=== PATIENT | male | born 1935 | race African-American/Black ===

== ENCOUNTER 2017-06-17 15:30 | Inpatient (IN) | payer OTHER, MEDICARE, BC ==
[~2017-06-17] VITALS: Ht 177.8 cm; Wt 119.1 kg
[2017-06-17] VITALS (9 sets, daily range): BP systolic 184–196; BP diastolic 77–90; PULSE 62–84; RESP 16–26; TEMP 98.3; O2SAT 93–97
[~2017-06-17 15:30] MED LIST: ALLO300T2 PO; ASPI1TAB69 PO; CARV25TA PO; EZET10 PO; FERR325T PO; FURO80TA PO; INSU1.2I SQ
[2017-06-17] MEDS ORDERED: SODI650T PO (16:15)
[2017-06-17] MEDS ORDERED: EZET10 PO (16:15)
[2017-06-17] MEDS ORDERED: FERR325T18 PO (16:15)
--- NOTE | 2017-06-17 16:23 | PD ---
HPI Chief Complaint: Abnormal Results Time Seen by Provider: 16:11 Travel History International Travel<30 days: No Contact w/Intl Traveler<30days: No Traveled to known affect area: No History of Present Illness HPI 81-year-old male was referred to the emergency room for evaluation of hyperkalemia. Patient has history of chronic kidney disease and recurrent hyperkalemia. Patient was admitted for hyperkalemia about a month ago in [place]. Patient has not had potassium level checked since then. Patient recently had a fistula procedure done on the left arm. Patient states that the fistula has not been used. Patient is awaiting dialysis. Patient was seen [facility] today and potassium was 6.4. Patient was referred to ED for evaluation. Patient denies any headache. Patient denies any chest pain or shortness of breath. Patient denies abdominal pain. Patient denies any focal weakness or numbness of extremity. Patient has history hypertension and diabetes. PFSH Past Medical History Arthritis: Yes (BL KNEES) Asthma: Yes (CHILDHOOD) Cancer: No Cardiovascular Problems: Yes (HTN) High Cholesterol: Yes Diabetes: Yes Patient Takes Glucophage: No Diminished Hearing: No Deep Vein Thrombosis: Yes (LEFT LOWER LEG 02/2013) Gastrointestinal Disorders: No Gout: Yes Hypertension: Yes Immune Disorder: No Implanted Vascular Access Dvce: No Neurologic: No Psychiatric: No Reproductive: No Immunizations Current: Yes Sleep Apnea: Yes Thyroid Disease: No Past Surgical History Eye Surgery: Yes (BL CATARACT REMOVAL) Neurologic Surgery: Yes (L5 HERNIATED DISC) Pacemaker: No Other Surgery: Yes (left arm fistula ) Social History Alcohol Use: Yes (rarely) Tobacco Use: No (FORMER) Substance Use: No Allergies-Medications (Allergen,Severity, Reaction): Coded Allergies: No Known Allergies (Unverified Adverse Reaction, Unknown, 06/17/17) Reported Meds & Prescriptions Reported Meds & Active Scripts Active Reported Zetia (Ezetimibe) 10 Mg Tab 10 Mg PO DAILY Ferrous Sulfate 325 Mg (65 Mg Iron) Tablet 325 Mg PO DAILY Sodium Bicarbonate 650 Mg Tab 650 Mg PO BIDPC Furosemide 80 Mg Tab 80 Mg PO DAILY Carvedilol 25 Mg Tab 25 Mg PO BID Allopurinol 300 Mg Tab 150 Mg PO DAILY Review of Systems General / Constitutional: No: Fever Eyes: No: Visual changes HENT: No: Headaches Cardiovascular: No: Chest Pain or Discomfort Respiratory: No: Shortness of Breath Gastrointestinal: No: Abdominal Pain Genitourinary: No: Dysuria Musculoskeletal: No: Pain Skin: No Rash Neurologic: No: Weakness Psychiatric: No: Depression Endocrine: No: Polydipsia Hematologic/Lymphatic: No: Easy Bruising Physical Exam Narrative GENERAL: Well-nourished, well-developed patient. SKIN: Focused skin assessment warm/dry. HEAD: Normocephalic. EYES: No scleral icterus. No injection or drainage. NECK: Supple, trachea midline. No JVD or lymphadenopathy. CARDIOVASCULAR: Regular rate and rhythm without murmurs, gallops, or rubs. RESPIRATORY: Breath sounds equal bilaterally. No accessory muscle use. GASTROINTESTINAL: Abdomen soft, non-tender, nondistended. MUSCULOSKELETAL: No cyanosis, or edema. BACK: Nontender without obvious deformity. No CVA tenderness. Neurologic exam normal. Data Data Last Documented VS Vital Signs Date Time Temp Pulse Resp B/P (MAP) Pulse Ox O2 Delivery O2 Flow Rate FiO2 06/17/17 16:52 95 06/17/17 16:08 64 16 Room Air 06/17/17 15:35 98.3 190/87 (121) Orders Orders Electrocardiogram (06/17/17 16:17) Complete Blood Count With Diff (06/17/17 16:17) Comprehensive Metabolic Panel (06/17/17 16:17) Prothrombin Time / Inr (Pt) (06/17/17 16:17) Act Partial Throm Time (Ptt) (06/17/17 16:17) Magnesium (Mg) (06/17/17 16:17) Phosphorus (Po4) (06/17/17 16:17) Iv Access Insert/Monitor (06/17/17 16:17) Ecg Monitoring (06/17/17 16:17) Oximetry (06/17/17 16:17) Calcium Gluconate Inj (Calcium Gluconate (06/17/17 16:30) Dextrose 50% In Keri (Vial) Inj (D50w (Vi (06/17/17 16:30) Insulin Human Regular Inj (Novolin R Inj (06/17/17 16:30) Sodium Bicarbonate 8.4% Inj (Sodium Bica (06/17/17 16:30) Sodium Polysty Sulfate Liq (Kayexalate L (06/17/17 16:30) Labs Laboratory Tests Test 06/17/17 16:47 White Blood Count 7.1 TH/MM3 Red Blood Count 3.36 MIL/MM3 Hemoglobin 9.9 GM/DL Hematocrit 31.3 % Mean Corpuscular Volume 93.0 FL Mean Corpuscular Hemoglobin 29.4 PG Mean Corpuscular Hemoglobin Concent 31.6 % Red Cell Distribution Width 14.3 % Platelet Count 214 TH/MM3 Mean Platelet Volume 8.0 FL Neutrophils (%) (Auto) 31.9 % Lymphocytes (%) (Auto) 52.2 % Monocytes (%) (Auto) 5.8 % Eosinophils (%) (Auto) 9.2 % Basophils (%) (Auto) 0.9 % Neutrophils # (Auto) 2.3 TH/MM3 Lymphocytes # (Auto) 3.6 TH/MM3 Monocytes # (Auto) 0.4 TH/MM3 Eosinophils # (Auto) 0.7 TH/MM3 Basophils # (Auto) 0.1 TH/MM3 CBC Comment DIFF FINAL Differential Comment Prothrombin Time 10.7 SEC Prothromb Time International Ratio 1.1 RATIO Activated Partial Thromboplast Time 26.7 SEC Blood Urea Nitrogen 61 MG/DL Creatinine 5.70 MG/DL Random Glucose 210 MG/DL Total Protein 7.1 GM/DL Albumin 3.0 GM/DL Calcium Level 8.3 MG/DL Phosphorus Level 3.6 MG/DL Magnesium Level 2.7 MG/DL Alkaline Phosphatase 121 U/L Aspartate Amino Transf (AST/SGOT) 13 U/L Alanine Aminotransferase (ALT/SGPT) 15 U/L Total Bilirubin 0.2 MG/DL Sodium Level 143 MEQ/L Potassium Level 6.6 MEQ/L Chloride Level 116 MEQ/L Carbon Dioxide Level 18.4 MEQ/L Anion Gap 9 MEQ/L Estimat Glomerular Filtration Rate 12 ML/MIN [facility] Medical Decision Making Medical Screen Exam Complete: Yes Emergency Medical Condition: Yes Interpretation(s) 1743 PM. Potassium 6.6. Chloride 116. Bicarbonate 18.4. BUN 61. Creatinine 5.7. GFR 12. Glucose 210. Calcium 8.3. Magnesium 2.7. Differential Diagnosis Differential diagnosis including hyperkalemia. Narrative Course 81-year-old male was referred to the emergency room from [facility] for hyperkalemia. Potassium was 6.4 today. Normal saline solution 70 cc an hour. Potassium level will be rechecked immediately. Patient is given D50, insulin, bicarbonate, calcium gluconate. Kayexalate also given. Patient will be admitted. I spoke with distresser on-call, Dr. Little. Advised repeat potassium level tonight at 10 PM. The results of potassium level will be called to Dr. Little. Diagnosis Primary Impression: Hyperkalemia Additional Impression: Chronic kidney disease, stage IV (severe) Admitting Information Admitting Physician Requests: Admit Raman Hernandez MD Jun 17, 2017 16:23
[2017-06-17] MEDS ORDERED: CALCIUM GLUCONATE INJ 1 GM in DEXTROSE 5% IN WATER 100ML INJ 100 ML IV ONE ×2 (16:30)
[2017-06-17] MEDS ORDERED: SODIUM POLYSTYRENE SULFONATE SUSP 15 GM/60 ML CUP PO ONE (16:30)
[2017-06-17] MEDS ORDERED: DEXTROSE 50% IN WATER 50 ML VIAL(D50) IV PUSH ONE (16:30)
[2017-06-17] MEDS ORDERED: INSULIN HUMAN REGULAR 1,000 UNITS/10 ML VIAL IV PUSH ONE (16:30)
[2017-06-17] MEDS ORDERED: SODIUM BICARBONATE 8.4% INJ 50 MEQ/50 ML SYR IV PUSH ONE (16:30)
[2017-06-17 16:56] LABS: AUTOMATED NEUTROPHIL # 2.3 TH/MM3 (1.8-7.7); BASOPHIL # 0.1 TH/MM3 (0-0.2); BASOPHIL % 0.9 % (0.0-2.0); EOSINOPHIL # 0.7 TH/MM3 (0-0.4); EOSINOPHIL % 9.2 % (0.0-4.0); HEMATOCRIT 31.3 % (39.0-51.0); HEMO FLAGS DIFF FINAL; LYMPH % 52.2 % (9.0-44.0); LYMPHOCYTE # 3.6 TH/MM3 (1.0-4.8); MEAN CORPUSCULAR HEMOGLOBIN 29.4 PG (27.0-34.0); MEAN CORPUSCULAR HGB CONC 31.6 % (32.0-36.0); MONO % 5.8 % (0.0-8.0); NEUT % 31.9 % (16.0-70.0); PLATELET COUNT 214 TH/MM3 (150-450); RED BLOOD COUNT 3.36 MIL/MM3 (4.50-5.90); RED CELL DISTRIBUTION WIDTH 14.3 % (11.6-17.2); WHITE BLOOD COUNT 7.1 TH/MM3 (4.0-11.0)
[2017-06-17 17:08] LABS: APTT (PATIENT) 26.7 SEC (24.3-30.1); INTERNATIONAL NORMALIZED RATIO 1.1 RATIO; PROTHROMBIN TIME - PATIENT 10.7 SEC (9.8-11.6)
[2017-06-17 17:33] LABS: ALKALINE PHOSPHATASE 121 U/L (45-117); ALT (GPT) 15 U/L (12-78); ANION GAP 9 MEQ/L (5-15); AST (GOT) 13 U/L (15-37); BICARBONATE 18.4 MEQ/L (21.0-32.0); BLOOD UREA NITROGEN 61 MG/DL (7-18); CHLORIDE 116 MEQ/L (98-107); GLOMERULAR FILTRATION RATE 12 ML/MIN (>89); MAGNESIUM 2.7 MG/DL (1.5-2.5); SODIUM (NA) 143 MEQ/L (136-145); TOTAL BILIRUBIN ADULT 0.2 MG/DL (0.2-1.0)
[2017-06-17 17:39] LABS: POTASSIUM 6.6 MEQ/L (3.5-5.1)
[2017-06-17] MEDS ORDERED: SODIUM CHLORIDE 0.9% FLUSH 10 ML FLUSH IV FLUSH PRN (18:30)
[2017-06-17] MEDS ORDERED: NALOXONE HCL 0.4 MG/ML AMP IV PUSH PRN (18:30)
[2017-06-17] MEDS ORDERED: ACETAMINOPHEN 325 MG TAB PO PRN (18:30)
[2017-06-17] MEDS: SODIUM CHLOR 0.9% 1000 ML INJ 1,000 ML IV SCH (18:40)
--- NOTE | 2017-06-17 19:31 | HHI.DS ---
Discharge Summary Admission Date Jun 17, 2017 at 18:26 Admitting Diagnosis hyperkalemia. Chronic kidney disease. CBC/BMP: 06/17/17 1647 06/17/17 1647 Significant Findings Laboratory Tests Test 06/17/17 16:47 Red Blood Count 3.36 MIL/MM3 (4.50-5.90) Hemoglobin 9.9 GM/DL (13.0-17.0) Hematocrit 31.3 % (39.0-51.0) Mean Corpuscular Hemoglobin Concent 31.6 % (32.0-36.0) Lymphocytes (%) (Auto) 52.2 % (9.0-44.0) Eosinophils (%) (Auto) 9.2 % (0.0-4.0) Eosinophils # (Auto) 0.7 TH/MM3 (0-0.4) Blood Urea Nitrogen 61 MG/DL (7-18) Creatinine 5.70 MG/DL (0.60-1.30) Random Glucose 210 MG/DL (74-106) Albumin 3.0 GM/DL (3.4-5.0) Calcium Level 8.3 MG/DL (8.5-10.1) Magnesium Level 2.7 MG/DL (1.5-2.5) Alkaline Phosphatase 121 U/L (45-117) Aspartate Amino Transf (AST/SGOT) 13 U/L (15-37) Potassium Level 6.6 MEQ/L (3.5-5.1) Chloride Level 116 MEQ/L (98-107) Carbon Dioxide Level 18.4 MEQ/L (21.0-32.0) Estimat Glomerular Filtration Rate 12 ML/MIN (>89) Ashley Huynh MD Jun 17, 2017 19:31
[2017-06-17] MEDS: SODIUM CHLORIDE 0.9% FLUSH 10 ML FLUSH IV FLUSH SCH (19:59)
[2017-06-17] MEDS: CARVEDILOL 12.5 MG TAB PO SCH (19:59)
[2017-06-17] MEDS ORDERED: DEXTROSE 50% IN WATER 50 ML VIAL(D50) IV PUSH PRN (21:00)
[2017-06-17] MEDS ORDERED: GLUCAGON 1 MG/ML VIAL OTHER PRN (21:00)
[2017-06-17] MEDS: hydrALAZINE HCL 20 MG/ML VIAL IV PUSH PRN (21:06)
--- NOTE | 2017-06-17 21:31 | EKG ---
Date Performed: 06/17/2017 Time Performed: 16:24:40 PTAGE: 81 years EKG: Sinus rhythm WITH FIRST DEGREE AV BLOCK INFERIOR MYOCARDIAL INFARCTION T-WAVE ABNORMALITY, CONSIDER LATERAL ISCHE MELISA NONSPECIFIC INTRAVENTRICULAR CONDUCTION DELAY ABNORMAL ECG PREVIOUS TRACING : 07/13/2013 03.44 Compared to previous tracing, lateral T wave inversion is n ow more pronounced. DOCTOR: Perfecto Miramontes Interpretating Date/Time 06/17/2017 21:30:48
[2017-06-17] MEDS ORDERED: CHLORHEXIDINE GLUCONATE 2 % 1 PACK (2 CLOTHS)(extra cloths) TOPICAL PRN (23:30)
[2017-06-18] VITALS (25 sets, daily range): BP systolic 146–201; BP diastolic 65–125; PULSE 74–107; RESP 18–30; TEMP 98.3–99.5; O2SAT 95–99
[2017-06-18] MEDS ORDERED: INSU1.2I SQ (00:26)
[2017-06-18] MEDS: hydrALAZINE HCL 20 MG/ML VIAL IV PUSH PRN ×3 (00:52→16:58)
[2017-06-18] MEDS: CHLORHEXIDINE GLUCONATE 2 % 1 PACK (2 CLOTHS)(taper/protocol) TOPICAL SCH (00:52)
[2017-06-18] MEDS ORDERED: cloNIDine HCL 0.1 MG TAB PO ONE ×2 (02:15→04:30)
[2017-06-18 06:20] LABS: AUTOMATED NEUTROPHIL # 3.1 TH/MM3 (1.8-7.7); BASOPHIL % 0.5 % (0.0-2.0); EOSINOPHIL # 0.7 TH/MM3 (0-0.4); EOSINOPHIL % 8.2 % (0.0-4.0); HEMATOCRIT 32.7 % (39.0-51.0); HEMO FLAGS DIFF FINAL; LYMPH % 49.5 % (9.0-44.0); LYMPHOCYTE # 4.5 TH/MM3 (1.0-4.8); MEAN CELL VOLUME 90.4 FL (80.0-100.0); MEAN CORPUSCULAR HEMOGLOBIN 29.2 PG (27.0-34.0); MEAN CORPUSCULAR HGB CONC 32.3 % (32.0-36.0); MONO % 6.1 % (0.0-8.0); NEUT % 35.7 % (16.0-70.0); PLATELET COUNT 232 TH/MM3 (150-450); RED BLOOD COUNT 3.62 MIL/MM3 (4.50-5.90); RED CELL DISTRIBUTION WIDTH 12.9 % (11.6-17.2); WHITE BLOOD COUNT 8.8 TH/MM3 (4.0-11.0)
[2017-06-18 06:29] LABS: POTASSIUM 5.3 MEQ/L (3.5-5.1)
[2017-06-18 06:40] LABS: BICARBONATE 17.9 MEQ/L (21.0-32.0)
[2017-06-18] MEDS: ONDANSETRON HCL 4 MG/2 ML VIAL IV PUSH PRN ×2 (07:27→20:49)
[2017-06-18] MEDS: SODIUM CHLOR 0.9% 1000 ML INJ 1,000 ML IV SCH (08:30)
[2017-06-18] MEDS: CARVEDILOL 12.5 MG TAB PO SCH ×2 (08:30→21:48)
[2017-06-18] MEDS: FERROUS SULFATE 325 MG (65 MG ELEMENTAL IRON) TAB PO SCH (08:30)
[2017-06-18] MEDS: SODIUM CHLORIDE 0.9% FLUSH 10 ML FLUSH IV FLUSH SCH ×2 (08:30→21:00)
[2017-06-18] MEDS ORDERED: SODIUM BICARBONATE 650 MG TAB PO SCH (09:00)
[2017-06-18] MEDS ORDERED: SODIUM BICARBONATE 325 MG TAB PO SCH (09:00)
[2017-06-18] MEDS ORDERED: DEXTROSE 50% IN WATER 50 ML VIAL(D50) IV PUSH PRN (10:15)
[2017-06-18] MEDS ORDERED: GLUCAGON 1 MG/ML VIAL OTHER PRN (10:15)
--- NOTE | 2017-06-18 10:17 | HHI.PR ---
Subjective Remarks Patient seen and evaluated in follow-up for electrolyte imbalance and end-stage renal disease. Potassium improved Some nausea this morning Objective Vitals Vital Signs Date Time Temp Pulse Resp B/P (MAP) Pulse Ox O2 Delivery O2 Flow Rate FiO2 06/18/17 06:00 96 06/18/17 06:00 96 25 178/76 (110) 96 06/18/17 05:00 92 22 186/90 (122) 98 06/18/17 04:00 90 06/18/17 04:00 98.4 90 22 189/80 (116) 98 06/18/17 03:57 90 24 181/88 (119) 98 06/18/17 03:00 88 24 193/125 (147) 97 06/18/17 02:00 90 06/18/17 02:00 90 25 200/86 (124) 98 06/18/17 01:00 78 22 195/90 (125) 98 06/18/17 00:14 74 23 197/95 (129) 99 06/18/17 00:00 88 06/18/17 00:00 98.4 86 23 201/92 (128) 95 06/17/17 23:00 84 24 193/88 (123) 06/17/17 22:00 82 22 193/88 (123) 06/17/17 21:00 76 26 196/90 (125) 06/17/17 20:00 68 18 184/83 (116) 95 06/17/17 20:00 62 06/17/17 19:45 98.3 69 18 193/80 (117) 96 06/17/17 19:28 66 16 184/80 (114) 97 06/17/17 18:32 65 16 184/77 (112) 97 Room Air 06/17/17 16:52 95 06/17/17 16:08 64 16 95 Room Air 06/17/17 15:35 98.3 78 18 190/87 (121) 93 I/O 06/17/17 06/17/17 06/17/17 06/18/17 06/18/17 06/18/17 07:00 15:00 23:00 07:00 15:00 23:00 Intake Total 110 ml 1199 ml Output Total 1120 ml Balance 110 ml 79 ml Intake Oral 480 ml IV Total 110 ml 719 ml Output Urine Total 1120 ml # Bowel Movements 0 Result Diagram: 06/18/17 0610 06/18/17 0610 Objective Remarks GENERAL: This is a well-nourished, well-developed patient, nausea CARDIOVASCULAR: Regular rate and rhythm without murmurs, gallops, or rubs. RESPIRATORY: Clear to auscultation. Breath sounds equal bilaterally. No wheezes , rales, or rhonchi. GASTROINTESTINAL: Abdomen soft, non-tender, nondistended. Normal active bowel sounds MUSCULOSKELETAL: Extremities without clubbing, cyanosis, or edema. NEURO: Alert & Oriented x4 to person, place, time, situation. Moves all ext x4 A/P Problem List: (1) Chronic kidney disease, stage IV (severe) ICD Code: N18.4 - Chronic kidney disease, stage 4 (severe) Status: Acute Plan: May need hemodialysis, nephrology following (2) Hyperkalemia ICD Code: E87.5 - Hyperkalemia Status: Acute Plan: Patient evaluated, refused Kayexalate (3) Diabetes mellitus ICD Code: E11.9 - Diabetes mellitus Status: Acute Plan: continue sliding scale, home medications (4) Hypertension ICD Code: I10 - Hypertension Status: Acute Plan: Continue blood pressure management, improved with current regimen Ashley Huynh MD Jun 18, 2017 10:17
[2017-06-18] MEDS: INSULIN ASPART SUPPLEMENTAL SCALE SQ SCH ×3 (12:19→21:49)
[2017-06-18] MEDS: NIFEdipine 60 MG SUSTAINED RELEASE TAB PO SCH (14:27)
--- NOTE | 2017-06-18 15:18 | MB ---
cc: BRYON ANTHONY MD DATE OF CONSULTATION: 06/18/2017. REASON FOR CONSULTATION: Elevated BUN and BUN and creatinine and hyperkalemia. HISTORY OF PRESENT ILLNESS: This is an 81-year-old male with past medical history of hypertension, bronchial asthma, history of deep vein thrombosis, sleep apnea, chronic anemia and chronic kidney disease who [facility] I was called to see the patient because of elevated BUN and creatinine. The patient has known history of chronic kidney disease. He lives in [place], [place] and has been following with his label folder there, and he was told that he needs to start on dialysis soon. He has a left arm AV fistula, which was done on May 23. The patient denies any nausea or vomiting. His appetite has been normal. He does not have any shortness of breath. He has some weakness and tiredness and feels like he is sleeping more than what usually used to do. There is no history of diarrhea. No dysuria or hematuria. He did not notice any decrease in the urine output. When the patient came in here, it was found that his potassium was 6.6 and it came down with treatment and now it is 5.3. He denies any history of taking nonsteroidal antiinflammatory drugs. PAST MEDICAL HISTORY: 1. Hypertension. 2. Bronchial asthma. 3. History of deep venous thrombosis. 4. Sleep apnea. 5. Chronic anemia. 6. History of gout. 7. Chronic kidney disease. PAST SURGICAL HISTORY: 1. Left arm AV fistula surgery one on May 23. 2. Herniated disc surgery. 3. Bilateral cataract surgery. REVIEW OF SYSTEMS: There is no history of fever. No headache. He has generalized weakness. He feels tired sometimes and sleeps more than normal. There is no nausea or vomiting. No shortness of breath. No chest pain. His appetite is normal. No hematuria. He did not notice any decrease in the urine output. SOCIAL HISTORY: The lives with his . There is no history of smoking. Occasionally drinks alcoholic beverages. FAMILY HISTORY: Family history is noncontributory. ALLERGIES: HE HAS NO KNOWN DRUG ALLERGIES. MEDICATIONS: Currently he is on the following medications: 1. Sodium bicarbonate 650 milligrams twice a day. 2. Ferrous sulfate 325 milligrams twice a day. 3. He received Kayexalate yesterday afternoon. 4. Insulin Aspart sliding scale. 5. Carvedilol 25 milligrams twice a day. PHYSICAL EXAMINATION: GENERAL: On examination, the patient is awake and alert and in no acute distress. VITAL SIGNS: His last blood pressure was 160/79, temperature is 98.7, oxygen saturation is 96% on room air. HEAD, EYES, EARS, NOSE, THROAT: The pupils are mid constricted. Nonicteric sclerae. Conjunctivae are pale. NECK: The neck is supple. JVD is not elevated. LUNGS: The patient has bilateral good air entry with occasional wheezing. HEART: S1 and S2 regular rhythm. ABDOMEN: Abdomen soft and lax no bruits. There is no tenderness. Bowel sounds positive. EXTREMITIES: There has mild edema in the legs. Left arm has an AV fistula with good bruit. INVESTIGATIONS: White blood cell count is 8.8, hemoglobin 10.6, platelet count of 232,000, neutrophils 35.7%. Sodium 144, potassium 5.3, chloride 106, bicarbonate 17.9, BUN 54, creatinine 5.4, glucose is 239, calcium is 8.3, phosphorus was 3.6 yesterday, magnesium 2.7. AST 13, ALT 15. Total protein 7.1 with albumin of 3.0. No urinalysis done. IMAGING STUDIES: The patient had ultrasound of the kidneys done in 2013 and it shows both kidneys are normal in size and there was no hydronephrosis. He has bilateral renal cysts. ASSESSMENT: 1. Chronic kidney disease with advanced renal failure. 2. Hyperkalemia and metabolic acidosis. 3. Hypertension. 4. Diabetes mellitus. 5. Mild anemia. 6. History of sleep apnea. The patient has advanced renal failure with a very high BUN and creatinine and his GFR is around 12. Although he does not have too many symptoms of uremia, it seems like he is reaching end-stage and will need to start dialysis soon. If his potassium is better, then he probably can wait until the fistula matures. The fistula was done almost four weeks ago and still needs more than a month just to mature. The patient want to delay the Dialysis as he want to wait for AVF maturation and going on a cruise on July 24 for six days. I discussed with him and his in detail about the symptoms of uremia. I asked him to go to the emergency room if he has any of these symptoms. In the meantime, will monitor his potassium. If his potassium is normal or close to normal, then he possibly can be discharged tomorrow and monitor him as an outpatient. The BP is elevated, I will put him on nifedipine and he should restrict potassium in the diet. This was discussed with the patient and the . If his potassium increases again, then I will give him Kayexalate. I will also increase the sodium bicarbonate to two twice a day. Thank you for the consultation. I will follow the patient while he is in the hospital. MD PENNIE Raman/ANGUS /1:39 PM /2:51 PM [id number]
--- NOTE | 2017-06-18 15:31 | HHI.HP ---
[facility] Physician Non-Staff Admission Diagnosis hyperkalemia. Chronic kidney disease. Diagnoses: (1) Chronic kidney disease, stage IV (severe) (2) Hyperkalemia (3) Diabetes mellitus Chief Complaint: Hyperkalemia Travel History International Travel<30 Days: No Contact w/Intl Traveler <30 Da: No Traveled to Known Affected Are: No History of Present Illness Patient is 81-year-old gentleman who follows up at the [place] services. He had outpatient labs drawn and the potassium was 6.4. Patient was referred to the emergency room. He reports no complaints and has not had any nausea or vomiting and her dizziness or tingling. He does have end-stage renal disease and has been off of his diet over the holidays while traveling with his . Patient says that he recently had a fistula placed while he was at home in [place]. He has live between [place] and [place]. He is admitted to the ICU due to potassium of 6.6 and evidence of acidosis with known kidney injury and renal failure. Review of Systems Constitutional: DENIES: Diaphoretic episodes, Fatigue, Fever, Weight gain, Weight loss, Chills, Dizziness, Change in appetite, Night Sweats Endocrine: DENIES: Heat/cold intolerance, Polydipsia, Polyuria, Polyphagia Eyes: DENIES: Blurred vision, Diplopia, Eye inflammation, Eye pain, Vision loss , Photosensitivity, Double Vision Ears, nose, mouth, throat: DENIES: Tinnitus, Hearing loss, Vertigo, Nasal discharge, Oral lesions, Throat pain, Hoarseness, Ear Pain, Running Nose, Epistaxis, Sinus Pain, Toothache, Odynophagia Respiratory: DENIES: Apneas, Cough, Snoring, Wheezing, Hemoptysis, Sputum production, Shortness of breath Cardiovascular: DENIES: Chest pain, Palpitations, Syncope, Dyspnea on Exertion , PND, Lower Extremity Edema, Orthopnea, Claudication Gastrointestinal: DENIES: Abdominal pain, Black stools, Bloody stools, Constipation, Diarrhea, Nausea, Vomiting, Difficulty Swallowing, Anorexia Genitourinary: DENIES: Sexual dysfunction, Urinary frequency, Urinary incontinence, Urgency, Hematuria, Dysuria, Nocturia, Penile Discharge, Testicular Pain, Testicular Swelling Musculoskeletal: DENIES: Joint pain, Muscle aches, Stiffness, Joint Swelling, Back pain, Neck pain Integumentary: DENIES: Abnormal pigmentation, Nail changes, Pruritus, Rash Hematologic/lymphatic: DENIES: Bruising, Lymphadenopathy Immunologic/allergic: DENIES: Eczema, Urticaria Neurologic: DENIES: Abnormal gait, Headache, Localized weakness, Paresthesias, Seizures, Speech Problems, Tremor, Poor Balance Except as stated in HPI: all other systems reviewed are Neg Past Family Social History Past Medical History Hypertension Diabetes End-stage renal disease Past Surgical History Cataracts Herniated disc Left arm fistula Reported Medications Reviewed in the EMR Allergies: Coded Allergies: No Known Allergies (Unverified Allergy, Unknown, 06/17/17) Active Ordered Medications Reviewed in the EMR Family History Father had kidney failure, mother from tuberculosis, brother and sister are both diabetics Social History No tobacco or alcohol dependency, retired j[employer] of [employer] Physical Exam Vital Signs Vital Signs Date Time Temp Pulse Resp B/P (MAP) Pulse Ox O2 Delivery O2 Flow Rate FiO2 06/18/17 15:00 78 24 175/77 (109) 06/18/17 14:00 78 06/18/17 14:00 78 22 150/84 (106) 06/18/17 12:00 98.7 86 21 160/79 (106) 96 06/18/17 12:00 86 06/18/17 11:00 94 30 165/82 (109) 06/18/17 10:00 92 06/18/17 10:00 92 22 152/75 (100) 06/18/17 09:00 98 18 148/65 (92) 06/18/17 08:25 98.8 104 20 167/75 (105) 06/18/17 08:00 107 06/18/17 07:18 102 26 167/81 (109) 95 06/18/17 06:00 96 06/18/17 06:00 96 25 178/76 (110) 96 06/18/17 05:00 92 22 186/90 (122) 98 06/18/17 04:00 90 06/18/17 04:00 98.4 90 22 189/80 (116) 98 06/18/17 03:57 90 24 181/88 (119) 98 06/18/17 03:00 88 24 193/125 (147) 97 06/18/17 02:00 90 06/18/17 02:00 90 25 200/86 (124) 98 06/18/17 01:00 78 22 195/90 (125) 98 06/18/17 00:14 74 23 197/95 (129) 99 06/18/17 00:00 88 06/18/17 00:00 98.4 86 23 201/92 (128) 95 06/17/17 23:00 84 24 193/88 (123) 06/17/17 22:00 82 22 193/88 (123) 06/17/17 21:00 76 26 196/90 (125) 06/17/17 20:00 68 18 184/83 (116) 95 06/17/17 20:00 62 06/17/17 19:45 98.3 69 18 193/80 (117) 96 06/17/17 19:28 66 16 184/80 (114) 97 06/17/17 18:32 65 16 184/77 (112) 97 Room Air 06/17/17 16:52 95 06/17/17 16:08 64 16 95 Room Air 06/17/17 15:35 98.3 78 18 190/87 (121) 93 Physical Exam GENERAL: This is a well-nourished, well-developed patient, in no apparent distress. SKIN: No rashes, ecchymoses or lesions. Cool and dry. HEAD: Atraumatic. Normocephalic. No temporal or scalp tenderness. EYES: Pupils equal round and reactive. Extraocular motions intact. No scleral icterus. No injection or drainage. ENT: Nose without bleeding, purulent drainage or septal hematoma. Throat without erythema, tonsillar hypertrophy or exudate. Uvula midline. Airway patent. NECK: Trachea midline. No JVD or lymphadenopathy. Supple, nontender, no meningeal signs. CARDIOVASCULAR: Regular rate and rhythm without murmurs, gallops, or rubs. RESPIRATORY: Clear to auscultation. Breath sounds equal bilaterally. No wheezes , rales, or rhonchi. GASTROINTESTINAL: Abdomen soft, non-tender, nondistended. No hepato-splenomegaly , or palpable masses. No guarding. MUSCULOSKELETAL: Extremities without clubbing, cyanosis, or edema. No joint tenderness, effusion, or edema noted. No calf tenderness. Negative Homans sign bilaterally. NEUROLOGICAL: Awake and alert. Cranial nerves II through XII intact. Motor and sensory grossly within normal limits. Five out of 5 muscle strength in all muscle groups. Normal speech. Laboratory Laboratory Tests Test 06/17/17 16:47 06/17/17 19:58 06/17/17 21:55 06/18/17 06:10 White Blood Count 7.1 8.8 Red Blood Count 3.36 3.62 Hemoglobin 9.9 10.6 Hematocrit 31.3 32.7 Mean Corpuscular Volume 93.0 90.4 Mean Corpuscular Hemoglobin 29.4 29.2 Mean Corpuscular Hemoglobin Concent 31.6 32.3 Red Cell Distribution Width 14.3 12.9 Platelet Count 214 232 Mean Platelet Volume 8.0 7.8 Neutrophils (%) (Auto) 31.9 35.7 Lymphocytes (%) (Auto) 52.2 49.5 Monocytes (%) (Auto) 5.8 6.1 Eosinophils (%) (Auto) 9.2 8.2 Basophils (%) (Auto) 0.9 0.5 Neutrophils # (Auto) 2.3 3.1 Lymphocytes # (Auto) 3.6 4.5 Monocytes # (Auto) 0.4 0.5 Eosinophils # (Auto) 0.7 0.7 Basophils # (Auto) 0.1 0.0 CBC Comment DIFF FINAL DIFF FINAL Differential Comment Prothrombin Time 10.7 Prothromb Time International Ratio 1.1 Activated Partial Thromboplast Time 26.7 Blood Urea Nitrogen 61 61 54 Creatinine 5.70 5.70 5.40 Random Glucose 210 46 239 Total Protein 7.1 Albumin 3.0 Calcium Level 8.3 8.6 8.3 Phosphorus Level 3.6 Magnesium Level 2.7 Alkaline Phosphatase 121 Aspartate Amino Transf (AST/SGOT) 13 Alanine Aminotransferase (ALT/SGPT) 15 Total Bilirubin 0.2 Sodium Level 143 145 144 Potassium Level 6.6 6.0 5.3 Chloride Level 116 116 116 Carbon Dioxide Level 18.4 23.0 17.9 Anion Gap 9 6 10 Estimat Glomerular Filtration Rate 12 12 12 Result Diagram: 06/18/1710 06/18/17609 Caprini VTE Risk Assessment Caprini VTE Risk Assessment: Mod/High Risk (score >= 2) Caprini Risk Assessment Model Point Value = 1 Point Value = 2 Point Value = 3 Point Value = 5 Age 41-60 Minor surgery BMI > 25 kg/m2 Swollen legs Varicose veins or History of unexplained or recurrent spontaneous Oral contraceptives or hormone replacement Sepsis (< 1 month) Serious lung disease, including pneumonia (< 1 month) Abnormal pulmonary function Acute myocardial infarction Congestive heart failure (< 1 month) History of inflammatory bowel disease Medical patient at bed rest Age 61-74 Arthroscopic surgery Major open surgery (> 45 min) Laparoscopic surgery (> 45 min) Malignancy Confined to bed (> 72 hours) Immobilizing plaster cast Central venous access Age >= 75 History of VTE Family history of VTE Factor V Leiden Prothrombin [id number] Lupus anticoagulant Anticardiolipin antibodies Elevated serum homocysteine Heparin-induced thrombocytopenia Other congenital or acquired thrombophilia Stroke (< 1 month) Elective arthroplasty Hip, pelvis, or leg fracture Acute spinal cord injury (< 1 month) Prophylaxis Regimen Total Risk Factor Score Risk Level Prophylaxis Regimen 0-1 Low Early ambulation 2 Moderate Order ONE of the following: *Sequential Compression Device (SCD) *Heparin 5000 units SQ BID 3-4 Higher Order ONE of the following medications: *Heparin 5000 units SQ TID *Enoxaparin/Lovenox 40 mg SQ daily (WT < 150 kg, CrCl > 30 mL/min) *Enoxaparin/Lovenox 30 mg SQ daily (WT < 150 kg, CrCl > 10-29 mL/min) *Enoxaparin/Lovenox 30 mg SQ BID (WT < 150 kg, CrCl > 30 mL/min) AND/OR *Sequential Compression Device (SCD) 5 or more Highest Order ONE of the following medications: *Heparin 5000 units SQ TID (Preferred with Epidurals) *Enoxaparin/Lovenox 40 mg SQ daily (WT < 150 kg, CrCl > 30 mL/min) *Enoxaparin/Lovenox 30 mg SQ daily (WT < 150 kg, CrCl > 10-29 mL/min) *Enoxaparin/Lovenox 30 mg SQ BID (WT < 150 kg, CrCl > 30 mL/min) AND *Sequential Compression Device (SCD) Assessment and Plan Problem List: (1) Chronic kidney disease, stage IV (severe) ICD Code: N18.4 - Chronic kidney disease, stage 4 (severe) Status: Acute Plan: May need hemodialysis if medical management is not sufficient, nephrology following Dietary indiscretions have been discussed with patient (2) Hyperkalemia ICD Code: E87.5 - Hyperkalemia Status: Acute Plan: Patient evaluated, refused Kayexalate (3) Diabetes mellitus ICD Code: E11.9 - Diabetes mellitus Status: Acute Plan: continue sliding scale, home medications Code Status full code Discussed Condition With Patient, ER M.D., spouse Physician Certification 2 Midnight Certification Type: Admission for Inpatient Services Order for Inpatient Services The services are ordered in accordance with Medicare regulations or non- Medicare payer requirements, as applicable. In the case of services not specified as inpatient-only, they are appropriately provided as inpatient services in accordance with the 2-midnight benchmark. Estimated LOS (days): 5 5 days is the estimated time the patient will need to remain in the hospital, assuming treatment plan goals are met and no additional complications. Post-Hospital Plan: Ashley Carlson MD Jun 18, 2017 15:31
[2017-06-18] MEDS ORDERED: NOVOINJ3 SQ (18:17)
[2017-06-18] MEDS: SODIUM BICARBONATE 325 MG TAB PO SCH (18:28)
[2017-06-18] MEDS ORDERED: INSULIN GLARGINE SQ SCH (21:00)
[2017-06-18] MEDS: hydrALAZINE HCL 25 MG TAB PO SCH (21:48)
[2017-06-18] MEDS: INSULIN DETEMIR 100 UNITS/ML VIAL SQ SCH (21:48)
[2017-06-19] VITALS (13 sets, daily range): BP systolic 133–171; BP diastolic 62–90; PULSE 70–99; RESP 16–30; TEMP 97.5–99.9; O2SAT 95–97
[2017-06-19] MEDS: SODIUM CHLOR 0.9% 1000 ML INJ 1,000 ML IV SCH (01:04)
[2017-06-19] MEDS: CHLORHEXIDINE GLUCONATE 2 % 1 PACK (2 CLOTHS)(taper/protocol) TOPICAL SCH (02:09)
[2017-06-19] MEDS: ONDANSETRON HCL 4 MG/2 ML VIAL IV PUSH PRN (03:46)
[2017-06-19] MEDS: hydrALAZINE HCL 25 MG TAB PO SCH ×2 (08:34→20:50)
[2017-06-19] MEDS: NIFEdipine 60 MG SUSTAINED RELEASE TAB PO SCH (08:34)
[2017-06-19] MEDS: CARVEDILOL 12.5 MG TAB PO SCH ×2 (08:35→20:51)
[2017-06-19] MEDS: FERROUS SULFATE 325 MG (65 MG ELEMENTAL IRON) TAB PO SCH (08:35)
[2017-06-19] MEDS: PANTOPRAZOLE SOD 40 MG DELAYED RELEASE TAB PO SCH (08:35)
[2017-06-19] MEDS: SODIUM BICARBONATE 325 MG TAB PO SCH ×2 (08:35→17:39)
[2017-06-19] MEDS: INSULIN ASPART SUPPLEMENTAL SCALE SQ SCH ×4 (08:36→20:51)
[2017-06-19] MEDS: SODIUM CHLORIDE 0.9% FLUSH 10 ML FLUSH IV FLUSH SCH ×2 (08:36→20:50)
[2017-06-19 08:40] LABS: POTASSIUM 5.4 MEQ/L (3.5-5.1)
--- NOTE | 2017-06-19 09:32 | HHI.PR ---
Subjective Remarks Patient seen today in follow-up for hyperkalemia and nausea and vomiting. Nausea is improved. Patient ambulatory and adequate bowel movements Reports he drank quite a bit TIRED and thinks that made him nauseated. Objective Vitals Vital Signs Date Time Temp Pulse Resp B/P (MAP) Pulse Ox O2 Delivery O2 Flow Rate FiO2 06/19/17 06:22 92 06/19/17 06:21 99.2 82 24 162/82 (108) 95 06/19/17 05:00 86 24 160/62 (94) 95 06/19/17 04:00 85 06/19/17 04:00 84 24 134/70 (91) 06/19/17 02:00 85 06/19/17 02:00 90 24 149/70 (96) 06/19/17 00:00 99.9 97 30 160/90 (113) 06/19/17 00:00 99 06/18/17 22:00 99 06/18/17 22:00 100 26 171/80 (110) 06/18/17 21:00 92 23 146/75 (98) 06/18/17 20:00 99.5 92 18 165/77 (106) 95 06/18/17 20:00 96 06/18/17 19:00 94 24 154/75 (101) 06/18/17 18:00 96 06/18/17 18:00 96 25 151/74 (99) 06/18/17 17:00 82 23 163/73 (103) 06/18/17 16:00 76 06/18/17 16:00 98.3 76 22 176/83 (114) 06/18/17 15:00 78 24 175/77 (109) 06/18/17 14:00 78 06/18/17 14:00 78 22 150/84 (106) 06/18/17 12:00 98.7 86 21 160/79 (106) 96 06/18/17 12:00 86 06/18/17 11:00 94 30 165/82 (109) 06/18/17 10:00 92 06/18/17 10:00 92 22 152/75 (100) I/O 06/18/17 06/18/17 06/18/17 06/19/17 06/19/17 06/19/17 07:00 15:00 23:00 07:00 15:00 23:00 Intake Total 1199 ml 520 ml 999 ml Output Total 1120 ml 1100 ml 450 ml Balance 79 ml -580 ml 549 ml Intake Oral 480 ml 520 ml IV Total 719 ml 999 ml Output Urine Total 1120 ml 1100 ml 450 ml # Bowel Movements 0 Result Diagram: 06/18/17 0610 06/19/17 0820 Objective Remarks GENERAL: This is a well-nourished, well-developed patient, nausea CARDIOVASCULAR: Regular rate and rhythm without murmurs, gallops, or rubs. RESPIRATORY: Clear to auscultation. Breath sounds equal bilaterally. No wheezes , rales, or rhonchi. GASTROINTESTINAL: Abdomen soft, non-tender, nondistended. Normal active bowel sounds MUSCULOSKELETAL: Extremities without clubbing, cyanosis, or edema. NEURO: Alert & Oriented x4 to person, place, time, situation. Moves all ext x4 A/P Problem List: (1) Chronic kidney disease, stage IV (severe) ICD Code: N18.4 - Chronic kidney disease, stage 4 (severe) Status: Acute Plan: May need hemodialysis once his fistula is mature Continue medical management for now increased bicarb per renal (2) Hyperkalemia ICD Code: E87.5 - Hyperkalemia Status: Acute Plan: Improved but still elevated at 5.4 (3) Diabetes mellitus ICD Code: E11.9 - Diabetes mellitus Status: Acute Plan: continue sliding scale, home toujeo substituted by pharmacy for Levemir (4) Hypertension ICD Code: I10 - Hypertension Status: Acute Plan: Continue blood pressure management, improved with current regimen Nifedipine, Coreg and hydralazine (5) Nausea & vomiting ICD Code: R11.2 - Nausea with vomiting, unspecified Plan: Patient reports he drank a whole gallon of outside and thinks that is what is causing his troubles Continue Protonix and emetics Assessment and Plan discussed with spouse Discharge Planning Follow-up BMP in a.m. Transfer to floor If nausea improved will discharge in a.m. Ashley Huynh MD Jun 19, 2017 09:32
--- NOTE | 2017-06-19 14:40 | HHI.NPPN ---
Subjective History of Present Illness 81-year-old male with past medical history of hypertension, bronchial asthma, history of deep vein thrombosis, sleep apnea, chronic anemia and chronic kidney disease who [facility] I was called to see the patient because of elevated BUN and creatinine. The patient has known history of chronic kidney disease. Additional Remarks Patient is alert, vomited and has nausea, no abd. pain, no SOB. Review of Systems General Constitutional: Fatigue Cardiovascular Cardiac: JAIME Gastrointestinal Gastrointestinal: Nausea & Vomiting Objective Data Data Vital Signs Date Time Temp Pulse Resp B/P (MAP) Pulse Ox O2 Delivery O2 Flow Rate FiO2 06/19/17 12:00 97.5 82 18 146/70 (95) 95 06/19/17 10:00 70 06/19/17 09:00 88 27 171/82 (111) 96 06/19/17 08:00 99.0 92 20 160/81 (107) 95 06/19/17 08:00 93 06/19/17 07:00 90 28 163/82 (109) 96 06/19/17 06:22 92 06/19/17 06:21 99.2 82 24 162/82 (108) 95 06/19/17 05:00 86 24 160/62 (94) 95 06/19/17 04:00 85 06/19/17 04:00 84 24 134/70 (91) 06/19/17 02:00 85 06/19/17 02:00 90 24 149/70 (96) 06/19/17 00:00 99.9 97 30 160/90 (113) 06/19/17 00:00 99 06/18/17 22:00 99 06/18/17 22:00 100 26 171/80 (110) 06/18/17 21:00 92 23 146/75 (98) 06/18/17 20:00 99.5 92 18 165/77 (106) 95 06/18/17 20:00 96 06/18/17 19:00 94 24 154/75 (101) 06/18/17 18:00 96 06/18/17 18:00 96 25 151/74 (99) 06/18/17 17:00 82 23 163/73 (103) 06/18/17 16:00 76 06/18/17 16:00 98.3 76 22 176/83 (114) 06/18/17 15:00 78 24 175/77 (109) -: 06/18/17 0610 06/19/17 0820 Physical Exam General Appearance: No Acute Distress, Comfortable Eyes Eye Exam: Pupils Equal Throat Throat Exam: Oral Mucosa [place] & Moist Neck Neck Exam: Neck Supple Pulmonary Resp Exam: Breath Sounds Equal, No Distress, Rhonchi, Decreased Bases Cardiology CV Exam: Regular, Normal Sinus Rhythm Gastrointestinal/Abdomen GI Exam: Soft, Non-Tender, Bowel Sounds Present Extremeties Extremities Exam: Trace Edema Neurologic Neuro Exam: Alert, Awake, Oriented Psychiatric Psych Exam: Appropriate Responses Assessment/Plan Assessment Summary: Hypertension, CKD Stage IV Problem List: (1) Diabetes mellitus ICD Codes: E11.9 - Diabetes mellitus Status: Acute (2) Hypertension ICD Codes: I10 - Hypertension Status: Acute (3) Nausea & vomiting ICD Codes: R11.2 - Nausea with vomiting, unspecified (4) Anemia ICD Codes: D64.9 - Anemia Status: Acute (5) History of DVT (deep vein thrombosis) ICD Codes: Z86.718 - History of DVT (deep vein thrombosis) Status: Acute (6) Hyperkalemia ICD Codes: E87.5 - Hyperkalemia Status: Acute (7) Chronic kidney disease, stage IV (severe) ICD Codes: N18.4 - Chronic kidney disease, stage 4 (severe) Status: Acute Plan Patient has advance stage 4 chronic kidney disease, approaching stage 5. Not much improvement in the Creatinine and GFR. K is also 5.4. Now has nausea, and vomited once. Has some symptoms of uremia. Discuss with the patient about possible tarting Dialysis. He want to wait for AVF maturation and want to go for [place] on 07[place]24[place]17. Discuss with him about uremia and possible complications, including Hyperkalemia , fluid overload etc. he will discuss with the and let me know. Mohan Little MD Jun 19, 2017 14:40
[2017-06-19] MEDS: INSULIN DETEMIR 100 UNITS/ML VIAL SQ SCH (20:51)
[2017-06-20] VITALS: BP 129/68; PULSE 77; RESP 16; TEMP 97.5; O2SAT 95
[2017-06-20] MEDS: CHLORHEXIDINE GLUCONATE 2 % 1 PACK (2 CLOTHS)(taper/protocol) TOPICAL SCH (04:22)
[2017-06-20 06:11] LABS: AUTOMATED NEUTROPHIL # 7.2 TH/MM3 (1.8-7.7); BASOPHIL # 0.1 TH/MM3 (0-0.2); BASOPHIL % 0.6 % (0.0-2.0); EOSINOPHIL # 0.3 TH/MM3 (0-0.4); EOSINOPHIL % 2.1 % (0.0-4.0); HEMATOCRIT 32.5 % (39.0-51.0); LYMPH % 30.9 % (9.0-44.0); LYMPHOCYTE # 3.8 TH/MM3 (1.0-4.8); MEAN CELL VOLUME 93.5 FL (80.0-100.0); MEAN CORPUSCULAR HEMOGLOBIN 29.7 PG (27.0-34.0); MEAN CORPUSCULAR HGB CONC 31.8 % (32.0-36.0); MONO % 7.1 % (0.0-8.0); NEUT % 59.3 % (16.0-70.0); PLATELET COUNT 194 TH/MM3 (150-450); RED BLOOD COUNT 3.47 MIL/MM3 (4.50-5.90); RED CELL DISTRIBUTION WIDTH 14.2 % (11.6-17.2); WHITE BLOOD COUNT 12.3 TH/MM3 (4.0-11.0)
[2017-06-20 06:14] LABS: HEMO FLAGS DIFF FINAL
[2017-06-20 06:20] LABS: POTASSIUM 5.4 MEQ/L (3.5-5.1)
[2017-06-20 06:29] LABS: BICARBONATE 20.2 MEQ/L (21.0-32.0)
[2017-06-20] MEDS: INSULIN ASPART SUPPLEMENTAL SCALE SQ SCH ×4 (08:00→20:43)
[2017-06-20] MEDS: PANTOPRAZOLE SOD 40 MG DELAYED RELEASE TAB PO SCH (08:14)
[2017-06-20] MEDS: CARVEDILOL 12.5 MG TAB PO SCH ×2 (08:14→20:41)
[2017-06-20] MEDS: hydrALAZINE HCL 25 MG TAB PO SCH ×2 (08:14→20:41)
[2017-06-20] MEDS: SODIUM BICARBONATE 325 MG TAB PO SCH ×2 (08:15→17:26)
[2017-06-20] MEDS: NIFEdipine 60 MG SUSTAINED RELEASE TAB PO SCH (08:15)
[2017-06-20] MEDS: FERROUS SULFATE 325 MG (65 MG ELEMENTAL IRON) TAB PO SCH (08:15)
[2017-06-20 09:43] VITALS: BP 145/70; PULSE 78; RESP 16; TEMP 98.5; O2SAT 95
[2017-06-20] MEDS: SODIUM CHLORIDE 0.9% FLUSH 10 ML FLUSH IV FLUSH SCH ×2 (12:13→20:42)
--- NOTE | 2017-06-20 12:13 | HHI.PR ---
Subjective Remarks Patient seen in follow-up for end-stage renal disease. He is now considering starting dialysis prior to his cruise. He will talk with the table and desk finisher this afternoon with his No further nausea and vomiting and electrolytes remain about the same Blood pressure improved Objective Vitals Vital Signs Date Time Temp Pulse Resp B/P (MAP) Pulse Ox O2 Delivery O2 Flow Rate FiO2 06/20/17 09:43 98.5 78 16 145/70 (95) 95 06/20/17 00:00 97.5 77 16 129/68 (88) 95 06/19/17 20:00 97.7 79 18 133/79 (97) 96 06/19/17 16:00 98.0 77 16 139/75 (96) 97 I/O 06/19/17 06/19/17 06/19/17 06/20/17 06/20/17 06/20/17 07:00 15:00 23:00 07:00 15:00 23:00 Intake Total 999 ml 650 ml 480 ml Output Total 450 ml 350 ml Balance 549 ml 650 ml 480 ml -350 ml Intake Oral 480 ml IV Total 999 ml 650 ml Output Urine Total 450 ml 350 ml # Voids 1 # Bowel Movements 0 Result Diagram: 06/20/17 0553 06/20/17 0553 Objective Remarks GENERAL: This is a well-nourished, well-developed patient, nausea CARDIOVASCULAR: Regular rate and rhythm without murmurs, gallops, or rubs. RESPIRATORY: Clear to auscultation. Breath sounds equal bilaterally. No wheezes , rales, or rhonchi. GASTROINTESTINAL: Abdomen soft, non-tender, nondistended. Normal active bowel sounds MUSCULOSKELETAL: Extremities without clubbing, cyanosis, or edema. NEURO: Alert & Oriented x4 to person, place, time, situation. Moves all ext x4 A/P Problem List: (1) Chronic kidney disease, stage IV (severe) ICD Code: N18.4 - Chronic kidney disease, stage 4 (severe) Status: Acute Plan: Awaiting his fistula to mature, however given his recent nausea and vomiting patient may start hemodialysis while inpatient Patient and spouse to meet with nephrology this afternoon Continue medical management for now increased bicarb per renal (2) Hyperkalemia ICD Code: E87.5 - Hyperkalemia Status: Acute Plan: Improved but still elevated at 5.4 (3) Diabetes mellitus ICD Code: E11.9 - Diabetes mellitus Status: Acute Plan: continue sliding scale, home toujeo substituted by pharmacy for Levemir Controlled but with a blood sugar of 85 We'll continue ADA diet with renal diet and decrease long-acting insulin to 30 units (4) Hypertension ICD Code: I10 - Hypertension Status: Acute Plan: Continue blood pressure management, improved with current regimen Nifedipine, Coreg and hydralazine (5) Nausea & vomiting ICD Code: R11.2 - Nausea with vomiting, unspecified Plan: Patient reports he drank a whole gallon of outside and thinks that is what is causing his troubles Continue Protonix and antiemetics May be uremic symptoms Assessment and Plan discussed with spouse Discharge Planning Patient and family to discuss with nephrology regarding dialysis Ashley Huynh MD Jun 20, 2017 12:13
[2017-06-20 14:52] VITALS: BP 114/60; PULSE 73; RESP 16; TEMP 98.8; O2SAT 92
[2017-06-20] MEDS ORDERED: SODIUM CHLOR 0.9% 1000 ML INJ 1,000 ML OTHER PRN ×2 (15:38)
[2017-06-20] MEDS ORDERED: SODIUM CHLOR 0.9% 1000 ML INJ 1,000 ML IV PRN (15:38)
--- NOTE | 2017-06-20 15:43 | HHI.NPPN ---
Subjective History of Present Illness 81-year-old male with past medical history of hypertension, bronchial asthma, history of deep vein thrombosis, sleep apnea, chronic anemia and chronic kidney disease who was sent to the hospital by the [place] because of hyperkalemia. I was called to see the patient because of elevated BUN and creatinine. The patient has known history of chronic kidney disease. Additional Remarks Patient is alert, now nausea is better, started eating. Review of Systems General Constitutional: Fatigue Cardiovascular Cardiac: JAIME Gastrointestinal Gastrointestinal: Nausea & Vomiting Objective Data Data Vital Signs Date Time Temp Pulse Resp B/P (MAP) Pulse Ox O2 Delivery O2 Flow Rate FiO2 06/20/17 14:52 98.8 73 16 114/60 (78) 92 06/20/17 09:43 98.5 78 16 145/70 (95) 95 06/20/17 00:00 97.5 77 16 129/68 (88) 95 06/19/17 20:00 97.7 79 18 133/79 (97) 96 06/19/17 16:00 98.0 77 16 139/75 (96) 97 -: 06/20/17 0553 06/20/17 0553 Physical Exam General Appearance: No Acute Distress, Comfortable Eyes Eye Exam: Pupils Equal Throat Throat Exam: Oral Mucosa [place] & Moist Neck Neck Exam: Neck Supple Pulmonary Resp Exam: Breath Sounds Equal, No Distress, Rhonchi, Decreased Bases Cardiology CV Exam: Regular, Normal Sinus Rhythm Gastrointestinal/Abdomen GI Exam: Soft, Non-Tender, Bowel Sounds Present Extremeties Extremities Exam: Trace Edema Neurologic Neuro Exam: Alert, Awake, Oriented Psychiatric Psych Exam: Appropriate Responses Assessment/Plan Assessment Summary: Hypertension, CKD Stage IV Problem List: (1) Diabetes mellitus ICD Codes: E11.9 - Diabetes mellitus Status: Acute (2) Hypertension ICD Codes: I10 - Hypertension Status: Acute (3) Nausea & vomiting ICD Codes: R11.2 - Nausea with vomiting, unspecified (4) Anemia ICD Codes: D64.9 - Anemia Status: Acute (5) History of DVT (deep vein thrombosis) ICD Codes: Z86.718 - History of DVT (deep vein thrombosis) Status: Acute (6) Hyperkalemia ICD Codes: E87.5 - Hyperkalemia Status: Acute (7) Chronic kidney disease, stage IV (severe) ICD Codes: N18.4 - Chronic kidney disease, stage 4 (severe) Status: Acute Plan Patient has advance stage 4 chronic kidney disease, approaching stage 5. BUN and Creatinine increasing. K is better as was not eating well. Has some symptoms of uremia. Discuss with the patient about possible starting Dialysis. He want to wait for AVF maturation and want to go for [place] on 07[place]24[place]17. Discuss with him about uremia and possible complications, including Hyperkalemia , fluid overload etc. Now after all discussion, he agreed to start HD. Will get PermCath and start HD tomorrow. Mohan Little MD Jun 20, 2017 15:43
[2017-06-20] MEDS ORDERED: NITROGLYCERIN 0.4 MG SL 25 TABS/BTL SL PRN (15:45)
[2017-06-20] MEDS ORDERED: ALBUMIN 25% INJ 100 ML IV PRN (15:45)
[2017-06-20] MEDS ORDERED: ACETAMINOPHEN 325 MG TAB PO PRN (15:45)
[2017-06-20] MEDS ORDERED: ONDANSETRON HCL 4 MG/2 ML VIAL IV PUSH PRN (15:45)
[2017-06-20] MEDS ORDERED: HEPARIN SODIUM - IV 10,000 UNITS/10 ML VIAL IV FLUSH PRN (15:45)
[2017-06-20] MEDS ORDERED: diphenhydrAMINE HCL 25 MG CAP PO PRN (15:45)
[2017-06-20] MEDS ORDERED: GELATIN 12 MM/7 MM FOAM TOP PRN (15:45)
[2017-06-20] MEDS ORDERED: SODIUM CHLORIDE 0.9% FLUSH 10 ML FLUSH IV FLUSH PRN ×2 (15:45→16:45)
[2017-06-20] MEDS ORDERED: MANNITOL 12.5 GM/50 ML VIAL IV PRN (15:45)
[2017-06-20] MEDS ORDERED: cloNIDine HCL 0.1 MG TAB PO PRN (15:45)
[2017-06-20] MEDS ORDERED: ceFAZolin 2 GM PREMIX 50 ML IV SCH (16:45)
[2017-06-20] MEDS ORDERED: VANCOMYCIN INJ 1,000 MG in SODIUM CHLOR 0.9% 250 ML INJ 250 ML IV SCH (16:45)
[2017-06-20 18:27] VITALS: BP 122/58; PULSE 77; RESP 18; TEMP 97.1; O2SAT 94
[2017-06-20 19:47] VITALS: O2SAT 93
[2017-06-20 20:00] VITALS: BP 143/68; PULSE 78; RESP 18; TEMP 98.3; O2SAT 93
[2017-06-20] MEDS: INSULIN DETEMIR 100 UNITS/ML VIAL SQ SCH (20:42)
[2017-06-20] MEDS ORDERED: SODIUM CHLORIDE 0.9% FLUSH 10 ML FLUSH IV FLUSH SCH (21:00)
[2017-06-21] VITALS (10 sets, daily range): BP systolic 118–147; BP diastolic 52–74; PULSE 71–83; RESP 15–20; TEMP 96.5–99.1; O2SAT 91–97
[2017-06-21] MEDS: CHLORHEXIDINE GLUCONATE 2 % 1 PACK (2 CLOTHS)(taper/protocol) TOPICAL SCH (04:00)
[2017-06-21 06:36] LABS: POTASSIUM 5.3 MEQ/L (3.5-5.1)
[2017-06-21 06:42] LABS: BICARBONATE 19.3 MEQ/L (21.0-32.0)
[2017-06-21] MEDS: INSULIN ASPART SUPPLEMENTAL SCALE SQ SCH ×4 (08:00→21:00)
[2017-06-21] MEDS: NIFEdipine 60 MG SUSTAINED RELEASE TAB PO SCH (08:40)
[2017-06-21] MEDS: PANTOPRAZOLE SOD 40 MG DELAYED RELEASE TAB PO SCH (08:40)
[2017-06-21] MEDS: FERROUS SULFATE 325 MG (65 MG ELEMENTAL IRON) TAB PO SCH (08:40)
[2017-06-21] MEDS: CARVEDILOL 12.5 MG TAB PO SCH ×2 (08:41→21:23)
[2017-06-21] MEDS: hydrALAZINE HCL 25 MG TAB PO SCH ×2 (08:41→21:23)
[2017-06-21] MEDS: SODIUM BICARBONATE 325 MG TAB PO SCH ×2 (08:42→17:24)
[2017-06-21] MEDS: VITAMIN B CMPLX/VITC/FOLIC AC CAP PO SCH (08:42)
[2017-06-21] MEDS: SODIUM CHLORIDE 0.9% FLUSH 10 ML FLUSH IV FLUSH SCH ×2 (08:42→21:24)
[2017-06-21] MEDS ORDERED: MIDAZOLAM HCL 2 MG/2 ML VIAL ONE (09:00)
[2017-06-21] MEDS ORDERED: HEPARIN SODIUM - IV 10,000 UNITS/10 ML VIAL ONE (10:10)
--- NOTE | 2017-06-21 10:23 | PD.RAD ---
Post Procedure Progress Note Pre Procedure Diagnosis: (1) Chronic kidney disease, stage IV (severe) Post Procedure Diagnosis: (1) Chronic kidney disease, stage IV (severe) Procedure Date: Jun 21, 2017 Supervising Radiologist: Ruiz Massey JR Proceduralist/Assist: Priyanka Jameson, RT(R), Mayank Ansari, RT(R) Anesthesia: Conscious Sedation Plan of Activity Patient to Unit: PACU Patient Condition: Good See PACS Report for procedural detail/treatment Central Venous Access Device Procedure 1 Right Internal Jugular Hemodialysis Catheter Tunneled Placement dual lumen Thai: 15 Findings: Placed RIJ permcath. In good position. Functions well. OK to use. Plan Remove sutures in 2-3 weeks. Jr. Bryson,Ruiz Villalpando MD Jun 21, 2017 10:23
[2017-06-21] MEDS ORDERED: HEPARIN SODIUM - IV 2,000 UNITS/2 ML VIAL IV FLUSH PRN (10:30)
[2017-06-21] MEDS ORDERED: SODIUM CHLORIDE 0.9% FLUSH 10 ML FLUSH IV FLUSH PRN (10:30)
--- NOTE | 2017-06-21 11:11 | RADRPT ---
EXAM DATE/TIME: 06/21/2017 09:54 [facility] COMPARISON: No previous studies available for comparison. INDICATIONS : Patient presents with chronic kidney disease in need of permanent central venous catheter placement f or dialysis. MEDICAL HISTORY : HTN End stage renal disease Diabetes SURGICAL HISTORY : Cataracts Herniated disc Left arm fistula ENCOUNTER: Initial ACUITY: 4-6 days PAIN SCORE: 0/10 LOCATION: N/A FLUORO TIME: 0.5 minutes IMAGE SERIES: SEDATION TIME: 30 minutes ACCESS: Right internal jugular vein SEDATION: 1.) 1.5 mg midazolam (Versed) IV 2.) 75 mcg fentanyl (Sublimaze) IV Prophylactic antibiotics were administered with appropriate pre-procedure timing. Vancomycin within 2 hours of procedure, Ancef (or alternative) within 1 hour of procedure. DEVICE: 1. 15 [place] dual lumen 23 cm Sanders II Plus catheter PROCEDURE : 1. Ultrasound-guided venipuncture. 2. PermaCath placement. 3. Conscious sedation with continuous EKG and oximetry monitoring. The risks, benefits and alternatives to the procedure were explained and verbal and written consent w as obtained. The site was prepped in sterile fashion. Full sterile technique was used, including ca p, mask, sterile gloves and gown and a large sterile sheet. Hand hygiene and 2% chlorhexidine and/or betadine/alcohol prep was utilized per protocol for cutaneous antisepsis. Sterile gel and sterile p robe cover were utilized for ultrasound guidance. The skin and subcutaneous tissues were infiltrated with local anesthetic solution. With ultrasound and fluoroscopic guidance a dermatotomy was created over the prescribed vein. A micr opuncture set was used to access the targeted vein and serial dilatation was performed to accept the prescribed length catheter. A subcutaneous tunnel was created in a retrograde fashion the catheter w as pulled through the tunnel. The catheter was flushed and assembled and locked with heparin. The c atheter was sutured in place. Conscious sedation was performed with the prescribed dosages and duration as above in the presence of an independent trained radiology nurse to assist in the monitoring of the patient. EKG and oximetry remained stable throughout the procedure. The patient tolerated the procedure well and there were n o complications. The patient was sent to post anesthesia recovery in stable condition. CONCLUSION: Uncomplicated PermaCath placement as above. Ruiz Massey Jr., MD on June 21, 2017 at 11:08 Board Certified Radiologist. This report was verified electronically.
[2017-06-21] MEDS: HEPARIN SODIUM - IV 10,000 UNITS/10 ML VIAL PRN (13:56)
[2017-06-21] MEDS: GENTAMICIN SULFATE (DIALYSIS USE ONLY) 20 MG/2 ML VIAL OTHER PRN (13:56)
[2017-06-21] MEDS: EPOETIN ALFA 10,000 UNITS/ML VIAL IV PUSH PRN (13:57)
[2017-06-21] MEDS ORDERED: LIDOCAINE 1%/EPINEPHrine 1:100,000 SOLN 30 ML VIAL OTHER ONE (14:32)
--- NOTE | 2017-06-21 14:57 | HHI.PR ---
Subjective Remarks Patient seen and examined today for follow-up on acute on chronic renal failure , hyperkalemia. Patient has had his permacath placement done today. Patient awaiting initial dialysis to be performed. Patient denies any other complaints at this time. Objective Vital Signs Date Time Temp Pulse Resp B/P (MAP) Pulse Ox O2 Delivery O2 Flow Rate FiO2 06/21/17 12:30 96.7 75 16 126/60 (82) 95 06/21/17 11:35 97.8 73 16 139/52 (81) 97 06/21/17 11:05 75 15 145/74 (97) 94 06/21/17 10:40 97.6 76 16 147/72 (97) 94 06/21/17 09:28 96.5 77 15 139/65 (89) 95 06/21/17 08:30 92 21 06/21/17 00:00 98.8 71 18 118/60 (79) 91 06/20/17 20:00 98.3 78 18 143/68 (93) 93 06/20/17 19:47 93 21 06/20/17 18:27 97.1 77 18 122/58 (79) 94 06/20/17 14:52 98.8 73 16 114/60 (78) 92 I/O 06/20/17 06/20/17 06/20/17 06/21/17 06/21/17 06/21/17 07:00 15:00 23:00 07:00 15:00 23:00 Intake Total 1000 ml 0 ml 300 ml Output Total 350 ml 300 ml Balance -350 ml 1000 ml -300 ml 300 ml Intake Oral 1000 ml 0 ml IV Total 300 ml Output Urine Total 350 ml 300 ml # Voids 3 Result Diagram: 06/20/17 0553 06/21/17 0530 Imaging Last Impressions Catheter Placement X-Ray 06/20/17 0000 Signed Impressions: Service Date/Time: Wednesday, June 21, 2017 09:54 - CONCLUSION: Uncomplicated PermaCath placement as above. Ruiz Massey Jr., MD Objective Remarks GENERAL: Well-developed, well-nourished, in no acute distress. alert and orientated HEENT: Head is normocephalic without any lesions or masses noted. Facial features are symmetric. Eyes: Extraocular muscles are intact. Conjunctivae were clear. NECK: Supple without any masses. Trachea midline no deviation. No JVD, permacath Noted right anterior chest CARDIAC: Regular rhythm, regular rate. S1/S2 are heard. No murmurs gallops or rubs. LUNGS: Clear to auscultation bilaterally. No wheeze, rhonchi or rales. No use of accessory muscles on inspiration or expiration. ABDOMEN: Soft, nontender. Nondistended. Bowel sounds heard in all 4 quadrants. No organomegaly or masses. Negative rebound, negative guarding EXTREMITIES: No edema, pulses are equal bilaterally. No cyanosis or clubbing NEUROLOGY: Mood and affect appear appropriate. Cranial nerves II through XII grossly intact. Moving all extremities, speech is clear A/P Assessment and Plan Acute on chronic kidney disease stage IV, Patient presented with worsening renal failure, metabolic acidosis, hyperkalemia Status post sodium bicarbonate, Kayexalate, insulin, D50, calcium gluconate without significant improvement of potassium Patient is awaiting for his fistula to mature prior to dialysis Permacath was placed for dialysis today, patient was premedicated with vancomycin and cefazolin by radiology Plans for initial dialysis to be started today Utility Driver following the patient Case management consulted to arrange outpatient dialysis Diabetes Accu-Cheks with sliding scale insulin Continue Levemir ADA diet/renal diet Hypertension Blood pressure controlled at this time Nifedipine 60 mg daily, Apresoline 50 mg twice daily, Coreg 25 mg twice daily Nausea vomiting, resolved Zofran as needed DVT prevention Sequential compression devices Discharge Planning Discharge planning 24-48 hours, depending on response to dialysis and cleared by filament shaper and arrangements made for outpatient dialysis at [facility] Jun 21, 2017 14:57
--- NOTE | 2017-06-21 16:19 | HHI.NPPN ---
Subjective History of Present Illness 81-year-old male with past medical history of hypertension, bronchial asthma, history of deep vein thrombosis, sleep apnea, chronic anemia and chronic kidney disease who was sent to the hospital by the [place] because of hyperkalemia. I was called to see the patient because of elevated BUN and creatinine. The patient has known history of chronic kidney disease. Additional Remarks Patient is alert, seen during HD, no SOB. Review of Systems General Constitutional: Fatigue Cardiovascular Cardiac: JAIME Gastrointestinal Gastrointestinal: Nausea & Vomiting Objective Data Data 06/21/17 06/22/17 19:00 07:00 Intake Total 300 ml Output Total 1000 ml Balance -700 ml IV Total 300 ml Hemodialysis 1000 ml Vital Signs Date Time Temp Pulse Resp B/P (MAP) Pulse Ox O2 Delivery O2 Flow Rate FiO2 06/21/17 12:30 96.7 75 16 126/60 (82) 95 06/21/17 11:35 97.8 73 16 139/52 (81) 97 06/21/17 11:05 75 15 145/74 (97) 94 06/21/17 10:40 97.6 76 16 147/72 (97) 94 06/21/17 09:28 96.5 77 15 139/65 (89) 95 06/21/17 08:30 92 21 06/21/17 00:00 98.8 71 18 118/60 (79) 91 06/20/17 20:00 98.3 78 18 143/68 (93) 93 06/20/17 19:47 93 21 06/20/17 18:27 97.1 77 18 122/58 (79) 94 -: 06/20/17 0553 06/21/17 0530 Physical Exam General Appearance: No Acute Distress, Comfortable Eyes Eye Exam: Pupils Equal Throat Throat Exam: Oral Mucosa [employer] & Moist Neck Neck Exam: Neck Supple Pulmonary Resp Exam: Breath Sounds Equal, No Distress, Rhonchi, Decreased Bases Cardiology CV Exam: Regular, Normal Sinus Rhythm Gastrointestinal/Abdomen GI Exam: Soft, Non-Tender, Bowel Sounds Present Extremeties Extremities Exam: Trace Edema Neurologic Neuro Exam: Alert, Awake, Oriented Psychiatric Psych Exam: Appropriate Responses Assessment/Plan Assessment Summary: Hypertension, CKD Stage IV Problem List: (1) Diabetes mellitus ICD Codes: E11.9 - Diabetes mellitus Status: Acute (2) Hypertension ICD Codes: I10 - Hypertension Status: Acute (3) Nausea & vomiting ICD Codes: R11.2 - Nausea with vomiting, unspecified (4) Anemia ICD Codes: D64.9 - Anemia Status: Acute (5) History of DVT (deep vein thrombosis) ICD Codes: Z86.718 - History of DVT (deep vein thrombosis) Status: Acute (6) Hyperkalemia ICD Codes: E87.5 - Hyperkalemia Status: Acute (7) Chronic kidney disease, stage IV (severe) ICD Codes: N18.4 - Chronic kidney disease, stage 4 (severe) Status: Acute Plan Patient has advance stage 4 chronic kidney disease, approaching stage 5. BUN and Creatinine increasing. Has some symptoms of uremia. Started on HD after the PermCath. Tolerating well, Out patient HD arrangements. Mohan Little MD Jun 21, 2017 16:19
--- NOTE | 2017-06-21 18:57 | RADRPT ---
EXAM DATE/TIME: 06/21/2017 18:21 [facility] COMPARISON: No previous studies available for comparison. INDICATIONS : Short of breath. Renal failure. MEDICAL HISTORY : Hypertension. Renal disease, end stage. Diabetes. SURGICAL HISTORY : Cataracts. Herniated disc. Left arm fistula. ENCOUNTER: Initial ACUITY: 3 days PAIN SCORE: 0/10 LOCATION: Bilateral chest FINDINGS: There is a small infiltrate in the right infrahilar region seen about the frontal and lateral view. The left lung is clear. Both hemidiaphragms are well delineated. The heart is upper limits normal i n size. Double-lumen right central line tip projects over the distal superior vena cava. CONCLUSION: Small right infrahilar infiltrate. Ruiz Barbosa MD on June 21, 2017 at 18:54 Board Certified Radiologist. This report was verified electronically.
[2017-06-21] MEDS: INSULIN DETEMIR 100 UNITS/ML VIAL SQ SCH (21:00)
[2017-06-22] VITALS (7 sets, daily range): BP systolic 111–142; BP diastolic 52–71; PULSE 69–81; RESP 20; TEMP 97.5–98.7; O2SAT 92–96
[2017-06-22] MEDS: CHLORHEXIDINE GLUCONATE 2 % 1 PACK (2 CLOTHS)(taper/protocol) TOPICAL SCH (03:47)
[2017-06-22 07:23] LABS: BASOPHIL # 0.1 TH/MM3 (0-0.2); BASOPHIL % 0.8 % (0.0-2.0); EOSINOPHIL # 0.4 TH/MM3 (0-0.4); EOSINOPHIL % 4.5 % (0.0-4.0); HEMATOCRIT 29.5 % (39.0-51.0); LYMPH % 35.5 % (9.0-44.0); LYMPHOCYTE # 3.3 TH/MM3 (1.0-4.8); MEAN CELL VOLUME 92.1 FL (80.0-100.0); MEAN CORPUSCULAR HEMOGLOBIN 29.6 PG (27.0-34.0); MEAN CORPUSCULAR HGB CONC 32.2 % (32.0-36.0); MONO % 6.9 % (0.0-8.0); NEUT % 52.3 % (16.0-70.0); PLATELET COUNT 123 TH/MM3 (150-450); RED CELL DISTRIBUTION WIDTH 13.6 % (11.6-17.2); WHITE BLOOD COUNT 9.4 TH/MM3 (4.0-11.0)
[2017-06-22 07:24] LABS: HEMO FLAGS DIFF FINAL
[2017-06-22 07:31] LABS: BICARBONATE 20.6 MEQ/L (21.0-32.0); MAGNESIUM 2.4 MG/DL (1.5-2.5)
[2017-06-22] MEDS: INSULIN ASPART SUPPLEMENTAL SCALE SQ SCH ×4 (08:00→22:13)
[2017-06-22] MEDS: SODIUM CHLORIDE 0.9% FLUSH 10 ML FLUSH IV FLUSH SCH ×2 (09:00→21:53)
[2017-06-22] MEDS: SODIUM BICARBONATE 325 MG TAB PO SCH ×2 (09:00→17:04)
[2017-06-22] MEDS: VITAMIN B CMPLX/VITC/FOLIC AC CAP PO SCH (09:00)
[2017-06-22] MEDS: HEPARIN SODIUM - IV 10,000 UNITS/10 ML VIAL PRN (09:08)
[2017-06-22] MEDS: GENTAMICIN SULFATE (DIALYSIS USE ONLY) 20 MG/2 ML VIAL OTHER PRN (09:09)
[2017-06-22] MEDS: PANTOPRAZOLE SOD 40 MG DELAYED RELEASE TAB PO SCH (10:50)
[2017-06-22] MEDS: FERROUS SULFATE 325 MG (65 MG ELEMENTAL IRON) TAB PO SCH (10:50)
[2017-06-22] MEDS: CARVEDILOL 12.5 MG TAB PO SCH ×2 (10:50→21:54)
[2017-06-22] MEDS: NIFEdipine 60 MG SUSTAINED RELEASE TAB PO SCH (10:50)
[2017-06-22] MEDS: hydrALAZINE HCL 25 MG TAB PO SCH ×2 (10:51→21:54)
[2017-06-22] MEDS ORDERED: MAGNESIUM HYDROXIDE SUSP 30 ML CUP PO PRN (11:30)
[2017-06-22] MEDS: DOCUSATE SODIUM 100 MG CAP PO SCH ×2 (11:30→21:00)
--- NOTE | 2017-06-22 13:20 | HHI.PR ---
Subjective Remarks Patient seen and examined today for follow-up on acute on chronic renal failure , hyperkalemia. Patient has undergone dialysis yesterday and today. He is doing well. Patient clinically stable for discharge, awaiting for [facility] to arrange outpatient hemodialysis Objective Vital Signs Date Time Temp Pulse Resp B/P (MAP) Pulse Ox O2 Delivery O2 Flow Rate FiO2 06/22/17 11:50 97.5 79 20 111/52 (71) 06/22/17 07:50 98.6 81 20 142/71 (94) 93 06/22/17 00:00 98.0 79 20 138/69 (92) 92 06/21/17 20:00 98.4 83 20 127/60 (82) 93 06/21/17 20:00 98.4 83 20 127/60 (82) 93 06/21/17 19:39 92 21 06/21/17 18:45 99.1 81 20 119/60 (79) 92 I/O 06/21/17 06/21/17 06/21/17 06/22/17 06/22/17 06/22/17 07:00 15:00 23:00 07:00 15:00 23:00 Intake Total 0 ml 300 ml Output Total 300 ml 1000 ml 1000 ml Balance -300 ml 300 ml -1000 ml -1000 ml Intake Oral 0 ml IV Total 300 ml Output Urine Total 300 ml Hemodialysis 1000 ml 1000 ml Result Diagram: 06/22/1765406/22/17 0655 Objective Remarks GENERAL: Well-developed, well-nourished, in no acute distress. alert and orientated HEENT: Head is normocephalic without any lesions or masses noted. Facial features are symmetric. Eyes: Extraocular muscles are intact. Conjunctivae were clear. NECK: Supple without any masses. Trachea midline no deviation. No JVD, permacath Noted right anterior chest CARDIAC: Regular rhythm, regular rate. S1/S2 are heard. No murmurs gallops or rubs. LUNGS: Clear to auscultation bilaterally. No wheeze, rhonchi or rales. No use of accessory muscles on inspiration or expiration. ABDOMEN: Soft, nontender. Nondistended. Bowel sounds heard in all 4 quadrants. No organomegaly or masses. Negative rebound, negative guarding EXTREMITIES: No edema, pulses are equal bilaterally. No cyanosis or clubbing NEUROLOGY: Mood and affect appear appropriate. Cranial nerves II through XII grossly intact. Moving all extremities, speech is clear A/P Assessment and Plan Acute on chronic kidney disease stage IV, Patient presented with worsening renal failure, metabolic acidosis, hyperkalemia Status post sodium bicarbonate, Kayexalate, insulin, D50, calcium gluconate without significant improvement of potassium Patient is awaiting for his fistula to mature prior to dialysis Status post Permacath placement for dialysis, patient was premedicated with vancomycin and cefazolin by radiology Assistant Producer following patient Case management consulted to arrange outpatient dialysis Diabetes Accu-Cheks with sliding scale insulin Continue Levemir ADA diet/renal diet Hypertension Blood pressure controlled at this time Nifedipine 60 mg daily, Apresoline 50 mg twice daily, Coreg 25 mg twice daily Nausea vomiting, resolved Zofran as needed DVT prevention Sequential compression devices Discharge Planning Discussed with case management. Patient clinically stable for discharge, awaiting [facility] to approve and arrange outpatient hemodialysis [facility] Jun 22, 2017 13:20
[2017-06-22] MEDS: DOCUSATE SODIUM 50 MG/SENNA 8.6 MG TAB PO PRN ×2 (13:59→21:54)
--- NOTE | 2017-06-22 16:53 | HHI.NPPN ---
Subjective History of Present Illness 81-year-old male with past medical history of hypertension, bronchial asthma, history of deep vein thrombosis, sleep apnea, chronic anemia and chronic kidney disease who [facility]. I was called to see the patient because of elevated BUN and creatinine. The patient has known history of chronic kidney disease. Additional Remarks Patient is alert, doing better, no SOB, no nausea. Review of Systems General Constitutional: Fatigue Cardiovascular Cardiac: JAIME Gastrointestinal Gastrointestinal: Nausea & Vomiting Objective Data Data 06/22/17 06/23/17 19:00 07:00 Output Total 1000 ml Balance -1000 ml Hemodialysis 1000 ml Vital Signs Date Time Temp Pulse Resp B/P (MAP) Pulse Ox O2 Delivery O2 Flow Rate FiO2 06/22/17 11:50 97.5 79 20 111/52 (71) 06/22/17 08:00 96 21 06/22/17 07:50 98.6 81 20 142/71 (94) 93 06/22/17 00:00 98.0 79 20 138/69 (92) 92 06/21/17 20:00 98.4 83 20 127/60 (82) 93 06/21/17 20:00 98.4 83 20 127/60 (82) 93 06/21/17 19:39 92 21 06/21/17 18:45 99.1 81 20 119/60 (79) 92 -: 06/22/17 0655 06/22/17 0655 Physical Exam General Appearance: No Acute Distress, Comfortable Eyes Eye Exam: Pupils Equal Throat Throat Exam: Oral Mucosa [place] & Moist Neck Neck Exam: Neck Supple Pulmonary Resp Exam: Breath Sounds Equal, No Distress, Rhonchi, Decreased Bases Cardiology CV Exam: Regular, Normal Sinus Rhythm Gastrointestinal/Abdomen GI Exam: Soft, Non-Tender, Bowel Sounds Present Extremeties Extremities Exam: Trace Edema Neurologic Neuro Exam: Alert, Awake, Oriented Psychiatric Psych Exam: Appropriate Responses Assessment/Plan Assessment Summary: Hypertension, CKD Stage IV Problem List: (1) Diabetes mellitus ICD Codes: E11.9 - Diabetes mellitus Status: Acute (2) Hypertension ICD Codes: I10 - Hypertension Status: Acute (3) Nausea & vomiting ICD Codes: R11.2 - Nausea with vomiting, unspecified (4) Anemia ICD Codes: D64.9 - Anemia Status: Acute (5) History of DVT (deep vein thrombosis) ICD Codes: Z86.718 - History of DVT (deep vein thrombosis) Status: Acute (6) Hyperkalemia ICD Codes: E87.5 - Hyperkalemia Status: Acute (7) Chronic kidney disease, stage IV (severe) ICD Codes: N18.4 - Chronic kidney disease, stage 4 (severe) Status: Acute Plan Patient has advance stage 4 chronic kidney disease, approaching stage 5. BUN and Creatinine increasing. Has some symptoms of uremia. Started on HD after the PermCath. Tolerating well, Out patient HD arrangements. Has HD today. I spoke to [facility], they are working on his papers, and waiting [facility] approval. Mohan Little MD Jun 22, 2017 16:53
[2017-06-22] MEDS: INSULIN DETEMIR 100 UNITS/ML VIAL SQ SCH (22:14)
[2017-06-23] VITALS (7 sets, daily range): BP systolic 101–126; BP diastolic 52–61; PULSE 66–76; RESP 20; TEMP 97.5–98.7; O2SAT 90–96
[2017-06-23] MEDS: INSULIN ASPART SUPPLEMENTAL SCALE SQ SCH ×4 (07:49→21:55)
[2017-06-23] MEDS: NIFEdipine 60 MG SUSTAINED RELEASE TAB PO SCH (09:49)
[2017-06-23] MEDS: hydrALAZINE HCL 25 MG TAB PO SCH ×2 (09:50→21:59)
[2017-06-23] MEDS: FERROUS SULFATE 325 MG (65 MG ELEMENTAL IRON) TAB PO SCH (09:50)
[2017-06-23] MEDS: DOCUSATE SODIUM 100 MG CAP PO SCH ×2 (09:50→21:53)
[2017-06-23] MEDS: PANTOPRAZOLE SOD 40 MG DELAYED RELEASE TAB PO SCH (09:50)
[2017-06-23] MEDS: SODIUM CHLORIDE 0.9% FLUSH 10 ML FLUSH IV FLUSH SCH ×2 (09:50→21:50)
[2017-06-23] MEDS: CARVEDILOL 12.5 MG TAB PO SCH ×2 (09:50→21:52)
[2017-06-23] MEDS: VITAMIN B CMPLX/VITC/FOLIC AC CAP PO SCH (10:04)
[2017-06-23] MEDS: SODIUM BICARBONATE 325 MG TAB PO SCH ×2 (10:21→17:36)
--- NOTE | 2017-06-23 10:44 | HHI.PR ---
Subjective Remarks Patient seen and examined today for follow-up on acute on chronic renal failure , hyperkalemia. Patient has started dialysis. Patient very eager to go home. We are waiting CT authorization to arrange outpatient dialysis. Patient denies any new complaints. Objective Vital Signs Date Time Temp Pulse Resp B/P (MAP) Pulse Ox O2 Delivery O2 Flow Rate FiO2 06/23/17 07:30 97.8 69 20 126/61 (82) 92 06/23/17 00:00 98.7 68 20 117/55 (75) 93 06/22/17 20:52 94 21 06/22/17 20:00 98.7 75 20 120/56 (77) 92 06/22/17 15:50 98.1 69 20 117/56 (76) 93 06/22/17 11:50 97.5 79 20 111/52 (71) I/O 06/22/17 06/22/17 06/22/17 06/23/17 06/23/17 06/23/17 07:00 15:00 23:00 07:00 15:00 23:00 Intake Total 1491 ml 240 ml Output Total 1000 ml 100 ml 0 ml Balance -1000 ml 1391 ml 240 ml Intake Oral 1491 ml 240 ml Output Urine Total 100 ml 0 ml Hemodialysis 1000 ml # Voids 0 # Bowel Movements 0 0 Result Diagram: 06/22/1765406/22/17 06 Objective Remarks GENERAL: Well-developed, well-nourished, in no acute distress. alert and orientated HEENT: Head is normocephalic without any lesions or masses noted. Facial features are symmetric. Eyes: Extraocular muscles are intact. Conjunctivae were clear. NECK: Supple without any masses. Trachea midline no deviation. No JVD, permacath Noted right anterior chest CARDIAC: Regular rhythm, regular rate. S1/S2 are heard. No murmurs gallops or rubs. LUNGS: Clear to auscultation bilaterally. No wheeze, rhonchi or rales. No use of accessory muscles on inspiration or expiration. ABDOMEN: Soft, nontender. Nondistended. Bowel sounds heard in all 4 quadrants. No organomegaly or masses. Negative rebound, negative guarding EXTREMITIES: No edema, pulses are equal bilaterally. No cyanosis or clubbing NEUROLOGY: Mood and affect appear appropriate. Cranial nerves II through XII grossly intact. Moving all extremities, speech is clear A/P Assessment and Plan Acute on chronic kidney disease stage IV, Patient presented with worsening renal failure, metabolic acidosis, hyperkalemia Status post sodium bicarbonate, Kayexalate, insulin, D50, calcium gluconate without significant improvement of potassium Patient is awaiting for his fistula to mature prior to dialysis Status post Permacath placement for dialysis, patient was premedicated with vancomycin and cefazolin by radiology Plant Operations Coordinator following patient Case management consulted and awaiting [facility] authorization to arrange outpatient dialysis Diabetes Accu-Cheks with sliding scale insulin Continue Levemir ADA diet/renal diet Hypertension Blood pressure controlled at this time Nifedipine 60 mg daily, Apresoline 50 mg twice daily, Coreg 25 mg twice daily Nausea vomiting, resolved Zofran as needed DVT prevention Sequential compression devices Discharge Planning Discussed with case management. Patient clinically stable for discharge, awaiting [facility] to approve and arrange outpatient hemodialysis [facility] Jun 23, 2017 10:44
--- NOTE | 2017-06-23 11:22 | HHI.NPPN ---
Subjective History of Present Illness 81-year-old male with past medical history of hypertension, bronchial asthma, history of deep vein thrombosis, sleep apnea, chronic anemia and chronic kidney disease who was sent to the hospital by the [place] because of hyperkalemia. I was called to see the patient because of elevated BUN and creatinine. The patient has known history of chronic kidney disease. Additional Remarks Patient is alert, no nauseam eating well, has off and on pain in legs, and Thigh area. Review of Systems General Constitutional: Fatigue Cardiovascular Cardiac: JAIME Gastrointestinal Gastrointestinal: Nausea & Vomiting Objective Data Data Vital Signs Date Time Temp Pulse Resp B/P (MAP) Pulse Ox O2 Delivery O2 Flow Rate FiO2 06/23/17 07:30 97.8 69 20 126/61 (82) 92 06/23/17 00:00 98.7 68 20 117/55 (75) 93 06/22/17 20:52 94 21 06/22/17 20:00 98.7 75 20 120/56 (77) 92 06/22/17 15:50 98.1 69 20 117/56 (76) 93 06/22/17 11:50 97.5 79 20 111/52 (71) -: 06/22/17 0655 06/22/17 0655 Physical Exam General Appearance: No Acute Distress, Comfortable Eyes Eye Exam: Pupils Equal Throat Throat Exam: Oral Mucosa [place] & Moist Neck Neck Exam: Neck Supple Pulmonary Resp Exam: Breath Sounds Equal, No Distress, Rhonchi, Decreased Bases Cardiology CV Exam: Regular, Normal Sinus Rhythm Gastrointestinal/Abdomen GI Exam: Soft, Non-Tender, Bowel Sounds Present Extremeties Extremities Exam: Trace Edema Neurologic Neuro Exam: Alert, Awake, Oriented Psychiatric Psych Exam: Appropriate Responses Assessment/Plan Assessment Summary: Hypertension, CKD Stage IV Problem List: (1) Diabetes mellitus ICD Codes: E11.9 - Diabetes mellitus Status: Acute (2) Hypertension ICD Codes: I10 - Hypertension Status: Acute (3) Nausea & vomiting ICD Codes: R11.2 - Nausea with vomiting, unspecified (4) Anemia ICD Codes: D64.9 - Anemia Status: Acute (5) History of DVT (deep vein thrombosis) ICD Codes: Z86.718 - History of DVT (deep vein thrombosis) Status: Acute (6) Hyperkalemia ICD Codes: E87.5 - Hyperkalemia Status: Acute (7) Chronic kidney disease, stage IV (severe) ICD Codes: N18.4 - Chronic kidney disease, stage 4 (severe) Status: Acute Plan Patient has advance stage 4 chronic kidney disease, approaching stage 5. BUN and Creatinine increasing. Has some symptoms of uremia. Started on HD after the PermCath. Tolerating well, Out patient HD arrangements and waiting [facility] approval. HD done yesterday, add Gabapentin. Mohan Little MD Jun 23, 2017 11:22
[2017-06-23] MEDS: INSULIN DETEMIR 100 UNITS/ML VIAL SQ SCH (21:53)
[2017-06-23] MEDS: GABAPENTIN 100 MG CAP PO SCH (21:53)
[2017-06-24] VITALS: BP 121/58; PULSE 70; RESP 20; TEMP 98; O2SAT 97
[2017-06-24 08:00] VITALS: BP 118/58; PULSE 69; RESP 16; TEMP 97; O2SAT 94
[2017-06-24] MEDS: INSULIN ASPART SUPPLEMENTAL SCALE SQ SCH ×2 (08:00→10:59)
[2017-06-24] MEDS: EPOETIN ALFA 10,000 UNITS/ML VIAL IV PUSH PRN (08:22)
[2017-06-24] MEDS: HEPARIN SODIUM - IV 10,000 UNITS/10 ML VIAL PRN (08:22)
[2017-06-24] MEDS: GENTAMICIN SULFATE (DIALYSIS USE ONLY) 20 MG/2 ML VIAL OTHER PRN (08:22)
[2017-06-24] MEDS: SODIUM BICARBONATE 325 MG TAB PO SCH (09:00)
[2017-06-24] MEDS: VITAMIN B CMPLX/VITC/FOLIC AC CAP PO SCH (09:00)
[2017-06-24] MEDS: CARVEDILOL 12.5 MG TAB PO SCH (10:57)
[2017-06-24] MEDS: hydrALAZINE HCL 25 MG TAB PO SCH (10:57)
[2017-06-24] MEDS: GABAPENTIN 100 MG CAP PO SCH (10:57)
[2017-06-24] MEDS: DOCUSATE SODIUM 100 MG CAP PO SCH (10:57)
[2017-06-24] MEDS: NIFEdipine 60 MG SUSTAINED RELEASE TAB PO SCH (10:58)
[2017-06-24] MEDS: FERROUS SULFATE 325 MG (65 MG ELEMENTAL IRON) TAB PO SCH (10:58)
[2017-06-24] MEDS: PANTOPRAZOLE SOD 40 MG DELAYED RELEASE TAB PO SCH (10:58)
[2017-06-24] MEDS: SODIUM CHLORIDE 0.9% FLUSH 10 ML FLUSH IV FLUSH SCH (10:59)
[2017-06-24] MEDS ORDERED: NIFE60TA8 PO (11:30)
[2017-06-24] MEDS ORDERED: SODI325T PO (11:30)
[2017-06-24] MEDS ORDERED: HYDR-3799 PO (11:30)
[2017-06-24] MEDS ORDERED: GABA100C4 PO (11:30)
--- NOTE | 2017-06-24 11:43 | HHI.NPPN ---
Subjective History of Present Illness 81-year-old male with past medical history of hypertension, bronchial asthma, history of deep vein thrombosis, sleep apnea, chronic anemia and chronic kidney disease who [facility]. I was called to see the patient because of elevated BUN and creatinine. The patient has known history of chronic kidney disease. Additional Remarks Patient is alert, now on HD, feeling better and want to go home. Review of Systems General Constitutional: Fatigue Cardiovascular Cardiac: JAIME Gastrointestinal Gastrointestinal: Nausea & Vomiting Objective Data Data 06/24/17 06/25/17 19:00 07:00 Output Total 2000 ml Balance -2000 ml Hemodialysis 2000 ml Vital Signs Date Time Temp Pulse Resp B/P (MAP) Pulse Ox O2 Delivery O2 Flow Rate FiO2 06/24/17 08:00 97.0 69 16 118/58 (78) 94 06/24/17 00:00 98.0 70 20 121/58 (79) 97 06/23/17 21:26 95 21 06/23/17 20:00 98.0 71 20 113/56 (75) 95 06/23/17 15:50 98.1 76 20 109/55 (73) 90 06/23/17 11:50 97.5 66 20 101/52 (68) 92 -: 06/22/17 0655 06/22/17 0655 Physical Exam General Appearance: No Acute Distress, Comfortable Eyes Eye Exam: Pupils Equal Throat Throat Exam: Oral Mucosa [place] & Moist Neck Neck Exam: Neck Supple Pulmonary Resp Exam: Breath Sounds Equal, No Distress, Rhonchi, Decreased Bases Cardiology CV Exam: Regular, Normal Sinus Rhythm Gastrointestinal/Abdomen GI Exam: Soft, Non-Tender, Bowel Sounds Present Extremeties Extremities Exam: Trace Edema Neurologic Neuro Exam: Alert, Awake, Oriented Psychiatric Psych Exam: Appropriate Responses Assessment/Plan Assessment Summary: Hypertension, CKD Stage IV Problem List: (1) Diabetes mellitus ICD Codes: E11.9 - Diabetes mellitus Status: Acute (2) Hypertension ICD Codes: I10 - Hypertension Status: Acute (3) Nausea & vomiting ICD Codes: R11.2 - Nausea with vomiting, unspecified (4) Anemia ICD Codes: D64.9 - Anemia Status: Acute (5) History of DVT (deep vein thrombosis) ICD Codes: Z86.718 - History of DVT (deep vein thrombosis) Status: Acute (6) Hyperkalemia ICD Codes: E87.5 - Hyperkalemia Status: Acute (7) Chronic kidney disease, stage IV (severe) ICD Codes: N18.4 - Chronic kidney disease, stage 4 (severe) Status: Acute Plan Patient has advance stage 4 chronic kidney disease, approaching stage 5. BUN and Creatinine increasing. Has some symptoms of uremia. Started on HD after the PermCath. Tolerating well, Out patient HD arrangements and waiting [facility] approval. HD now, I got call from [facility], he can be discharged after HD. To start HD at [facility] on Tuesday 6.45 AM, due to Holiday. He will then be MWF. Problem Qualifiers (1) Hypertension: Qualified Codes: I10 - Essential (primary) hypertension (2) Nausea & vomiting: Qualified Codes: R11.2 - Nausea with vomiting, unspecified Mohan Little MD Jun 24, 2017 11:43
[2017-06-24 12:00] VITALS: BP 119/59; PULSE 89; RESP 16; TEMP 96.9; O2SAT 96
--- NOTE | 2017-06-24 12:24 | HHI.DS ---
Discharge Summary Admission Date Jun 17, 2017 at 18:26 Discharge Date: Jun 24, 2017 Admitting Diagnosis hyperkalemia. Chronic kidney disease. (1) Chronic kidney disease, stage IV (severe) ICD Code: N18.4 - Chronic kidney disease, stage 4 (severe) Status: Acute (2) Hyperkalemia ICD Code: E87.5 - Hyperkalemia Status: Acute (3) Diabetes mellitus ICD Code: E11.9 - Diabetes mellitus Status: Acute (4) Hypertension ICD Code: I10 - Hypertension Status: Acute (5) Nausea & vomiting ICD Code: R11.2 - Nausea with vomiting, unspecified Procedures Permacath placement Brief History - From Admission Patient is 81-year-old gentleman who follows up at the [place] [facility]. He had outpatient labs drawn and the potassium was 6.4. Patient was referred to the emergency room. He reports no complaints and has not had any nausea or vomiting and her dizziness or tingling. He does have end-stage renal disease and has been off of his diet over the holidays while traveling with his . Patient says that he recently had a fistula placed while he was at home in [place]. He has live between [place] and [place]. He is admitted to the ICU due to potassium of 6.6 and evidence of acidosis with known kidney injury and renal failure. CBC/BMP: 06/22/17 0655 06/22/17 0655 Significant Findings Laboratory Tests Test 06/22/17 06:55 Red Blood Count 3.20 MIL/MM3 (4.50-5.90) Hemoglobin 9.5 GM/DL (13.0-17.0) Hematocrit 29.5 % (39.0-51.0) Platelet Count 123 TH/MM3 (150-450) Eosinophils (%) (Auto) 4.5 % (0.0-4.0) Blood Urea Nitrogen 57 MG/DL (7-18) Creatinine 6.40 MG/DL (0.60-1.30) Random Glucose 190 MG/DL (74-106) Calcium Level 8.0 MG/DL (8.5-10.1) Carbon Dioxide Level 20.6 MEQ/L (21.0-32.0) Estimat Glomerular Filtration Rate 10 ML/MIN (>89) Imaging Last Impressions Chest X-Ray 06/21/17 0000 Signed Impressions: Service Date/Time: Wednesday, June 21, 2017 18:21 - CONCLUSION: Small right infrahilar infiltrate. Ruiz Barbosa MD Catheter Placement X-Ray 06/20/17 0000 Signed Impressions: Service Date/Time: Wednesday, June 21, 2017 09:54 - CONCLUSION: Uncomplicated PermaCath placement as above. Ruiz Massey Jr., MD PE at Discharge GENERAL: This is a well-nourished, well-developed patient, nausea CARDIOVASCULAR: Regular rate and rhythm without murmurs, gallops, or rubs. RESPIRATORY: Clear to auscultation. Breath sounds equal bilaterally. No wheezes , rales, or rhonchi. GASTROINTESTINAL: Abdomen soft, non-tender, nondistended. Normal active bowel sounds MUSCULOSKELETAL: Extremities without clubbing, cyanosis, or edema. NEURO: Alert & Oriented x4 to person, place, time, situation. Moves all ext x4 Hospital Course 81-year-old male with known history of chronic kidney disease stage V who presented to the hospital for evaluation of hyperkalemia. Patient was evaluated and started on insulin, D50, Kayexalate, calcium gluconate, sodium bicarbonate without any significant response. Patient is followed by Dr. Little on a regular basis. Patient does have a fistula in place however waiting for the majority start dialysis. Nephrology follow patient during his stay in the hospital and arrange for a permacath replaced to start dialysis. Patient started dialysis with good improvement of his electrolytes, renal function. Case management consulted to arrange outpatient dialysis. However [facility]. This took approximately 3 days in order to get [facility] to [facility]. We are able to get patient set up with outpatient dialysis to start on Tuesday. Patient is clinically stable this time will plan discharge home with outpatient follow-up. Pt Condition on Discharge: Stable Discharge Disposition: Discharge Home Discharge Time: > 30 minutes Discharge Instructions DIET: Follow Instructions for: Renal Failure Diet Activities you can perform: Regular-No Restrictions Activities to Avoid: Driving for 24 hrs Follow up Referrals: Nephrology - 1 Week PCP Follow-up - 1 Week New Medications: Gabapentin (Gabapentin) 100 Mg Cap 100 MG PO BID for Pain Management, #60 CAP Hydralazine HCl (Hydralazine HCl) 25 Mg Tablet 50 MG PO BID for Blood Pressure Management, #60 TAB Nifedipine ER 24 HR (Nifedipine ER 24 HR) 60 Mg Tab 60 MG PO DAILY for Blood Pressure Management, #60 TAB Sodium Bicarbonate (Sodium Bicarbonate) 325 Mg Tab 1300 MG PO BIDPC for Renal failure for 30 Days, TAB Continued Medications: Carvedilol (Carvedilol) 25 Mg Tab 25 MG PO BID, #60 TAB 0 Refills Ezetimibe (Zetia) 10 Mg Tab 10 MG PO DAILY, #30 TAB 0 Refills Ferrous Sulfate (Ferrous Sulfate) 325 Mg (65 Mg Iron) Tablet 325 MG PO DAILY for Nutritional Supplement, #30 TAB 0 Refills Insulin Aspart Inj (Novolog Flexpen Inj) 300 Unit/3 Ml Pen 1 UNITS SQ for Blood Sugar Management, #1 PEN 0 Refills Insulin Glargine Inj (Toujeo Solostar Pen Inj) 300 Unit/Ml Pen 40 UNITS SQ HS for Blood Sugar Management, PEN 0 Refills pt states IF BS LESS THAN 150, DO NOT TAKE Discontinued Medications: Allopurinol (Allopurinol) 300 Mg Tab 150 MG PO DAILY for Gout, #30 TAB 0 Refills Furosemide (Furosemide) 80 Mg Tab 80 MG PO DAILY, #30 TAB 0 Refills Sodium Bicarbonate (Sodium Bicarbonate) 650 Mg Tab 650 MG PO BIDPC, #60 TAB 0 Refills Miguelito Martinez Jun 24, 2017 12:24
== END 2017-06-24 15:45 | disposition home or self-care (01) | DRG 682 ==
LOC: PHED 15:30 → PHEDA 18:26 → PHICU 19:30 → PH3B 06-19 11:55
PROVIDERS: ADMIT Hospitalist; ATTEND Hospitalist
PROC: 02HV33Z Insertion of Infusion Device into Superior Vena Cava, Percutaneous Approach (ICD-10-PCS; principal; 2017-06-21)
PROC: B5131ZA Fluoroscopy of Right Jugular Veins using Low Osmolar Contrast, Guidance (ICD-10-PCS; 2017-06-21)
PROC: 5A1D70Z Performance of Urinary Filtration, Intermittent, Less than 6 Hours Per Day (ICD-10-PCS; 2017-06-22)
DX: I12.0 Hypertensive chronic kidney disease with stage 5 chronic kidney disease or end stage renal disease (principal); N18.6 End stage renal disease; N17.9 Acute kidney failure, unspecified; E87.2 Acidosis; E11.22 Type 2 diabetes mellitus with diabetic chronic kidney disease; E87.5 Hyperkalemia; J45.909 Unspecified asthma, uncomplicated; G47.30 Sleep apnea, unspecified; D63.1 Anemia in chronic kidney disease; M10.9 Gout, unspecified; Z84.1 Family history of disorders of kidney and ureter; Z86.718 Personal history of other venous thrombosis and embolism; Z87.891 Personal history of nicotine dependence
CPT/HCPCS: 36558; 71020; 76937; 77001; 80048; 80053; 80074; 82948; 83735; 84100; 85025; 85610; 85730; 87641; 90935; 93005; 96374; 96375; 99152; 99153; C1750; C1769; J0360; J0610; J0690; J1580; J1644; J1815; J2250; J2405; J3010; J3370; J7030; J7050; Q4081